=== PATIENT | female | born 1960 | race African-American/Black ===

== ENCOUNTER 2019-01-15 16:06 | Emergency (ER) | payer MEDICAID ==
[~2019-01-15] VITALS: Ht 160 cm; Wt 61.2 kg
--- NOTE | 2019-01-15 16:07 | NUR ---
PT [id number] FROM HOME, C/O LEFT LEG PAIN S/P FALL FROM THE STAIRS, -KO, POSSIBLE FRACTURE, PT IS AAOX4, NOT IN RESPIRATORY DISTRESS, HOOKED TO MONITOR, KEPT RESTED AND COMFORTABLE, WILL CONTINUE TO MONITOR.
[2019-01-15] MEDS ORDERED: KETOROLAC TROMETHAMINE INJ 30 MG/ML VIAL ONE (16:16)
--- NOTE | 2019-01-15 16:16 | NUR ---
SEEN AND EXAMINED BY .
--- NOTE | 2019-01-15 16:17 | NUR ---
IV LINE ESTABLISHED.
--- NOTE | 2019-01-15 16:20 | NUR ---
PROGRAM SUPPORT ASSISTANT AT BEDSIDE FOR XRAY.
[2019-01-15] MEDS ORDERED: KETOROLAC TROMETHAMINE INJ 30 MG/ML VIAL IV ONE (16:30)
[2019-01-15 17:37] VITALS: BP 144/91
--- NOTE | 2019-01-15 17:37 | NUR ---
IV removed. Catheter intact and site benign. Pressure and 4x4 applied to site. No bleeding noted. Patient discharged to home in stable condition. Written and verbal after care instructions given. Patient verbalizes understanding of instruction.
== END 2019-01-15 17:41 | disposition home or self-care (01) ==
LOC: ER 16:07
DX: S82.832A Other fracture of upper and lower end of left fibula, initial encounter for closed fracture (principal); S82.392A Other fracture of lower end of left tibia, initial encounter for closed fracture; I10 Essential (primary) hypertension; E78.5 Hyperlipidemia, unspecified; E11.9 Type 2 diabetes mellitus without complications; Z88.5 Allergy status to narcotic agent; Z60.2 Problems related to living alone; Z88.8 Allergy status to other drugs, medicaments and biological substances; W01.0XXA Fall on same level from slipping, tripping and stumbling without subsequent striking against object, initial encounter; Y93.89 Activity, other specified; Y92.89 Other specified places as the place of occurrence of the external cause; Y99.8 Other external cause status
CPT/HCPCS: 29515; 73590; 73610; 96374; 99283; J1885

== ENCOUNTER 2019-01-23 10:57 | Emergency (ER) | payer MEDICAID ==
[~2019-01-23] VITALS: Ht 160 cm; Wt 54.4 kg
[2019-01-23] MEDS ORDERED: KETOROLAC TROMETHAMINE INJ 60 MG/2 ML VIAL IM ONE ×2 (12:00→12:01)
[2019-01-23 12:54] VITALS: BP 141/88
--- NOTE | 2019-01-23 12:56 | NUR ---
Patient discharged to home in stable condition. Written and verbal after care instructions given. Patient verbalizes understanding of instruction. Prescription provided.
== END 2019-01-23 12:56 | disposition home or self-care (01) ==
LOC: ER 10:59
DX: S92.812A Other fracture of left foot, initial encounter for closed fracture (principal); I10 Essential (primary) hypertension; E78.5 Hyperlipidemia, unspecified; E11.9 Type 2 diabetes mellitus without complications; Z88.8 Allergy status to other drugs, medicaments and biological substances; Z88.5 Allergy status to narcotic agent; Z60.2 Problems related to living alone; X58.XXXA Exposure to other specified factors, initial encounter; Y93.89 Activity, other specified; Y92.89 Other specified places as the place of occurrence of the external cause; Y99.8 Other external cause status
CPT/HCPCS: 96372; 99283; J1885

== ENCOUNTER 2019-02-11 14:56 | Emergency (ER) | payer MEDICAID ==
[~2019-02-11] VITALS: Ht 162.6 cm; Wt 64.4 kg
--- NOTE | 2019-02-11 15:05 | NUR ---
"LLE PAIN AND SWELLING" pt aaox4, -sob, nad noted, vss ,pending md street
[2019-02-11] MEDS ORDERED: FLUCONAZOLE (100 MG) 100 MG TABLET ONE (15:57)
[2019-02-11] MEDS ORDERED: TRAMADOL HCL 50 MG TABLET ONE (15:57)
[2019-02-11] MEDS ORDERED: FLUCONAZOLE (100 MG) 100 MG TABLET PO ONE (16:00)
[2019-02-11] MEDS ORDERED: TRAMADOL HCL 50 MG TABLET PO ONE (16:00)
[2019-02-11] MEDS ORDERED: NYSTATIN (PYXIS) 500,000 UNIT/5 ML ORAL.SUSP PO SCH (16:00)
[2019-02-11] MEDS ORDERED: oxyCODONE/APAP (5/325 MG) 1 UDTAB TABLET ONE (18:20)
[2019-02-11] MEDS ORDERED: oxyCODONE/APAP (5/325 MG) 1 UDTAB TABLET PO ONE (18:30)
--- NOTE | 2019-02-11 18:44 | NUR ---
TRACE RAMON 1929 TRIP #[id number]
--- NOTE | 2019-02-11 18:44 | NUR ---
[facility] ETA 2030
--- NOTE | 2019-02-11 19:45 | NUR ---
[facility] ETA 2000
--- NOTE | 2019-02-11 20:23 | NUR ---
PT LEFT VIA [facility], PT LEFT IN STABLE CONDITION, VSS, NAD NOTED, -SOB, PT LEFT VIA [facility], REPORT GIVEN TO THE [facility] STAFF, PT SIGNED ALL PAPERWORK. D/C INSTRUCTIONS GIVEN
[2019-02-11 20:25] VITALS: BP 132/85
== END 2019-02-11 20:25 | disposition home or self-care (01) ==
LOC: ER 14:58
DX: M79.662 Pain in left lower leg (principal); B37.0 Candidal stomatitis; I10 Essential (primary) hypertension; E78.5 Hyperlipidemia, unspecified; E11.9 Type 2 diabetes mellitus without complications; Z98.890 Other specified postprocedural states; Z88.8 Allergy status to other drugs, medicaments and biological substances; Z88.6 Allergy status to analgesic agent; Z60.2 Problems related to living alone

== ENCOUNTER 2019-03-09 19:22 | Emergency (ER) | payer MEDICAID ==
[~2019-03-09] VITALS: Ht 160 cm; Wt 52.2 kg
[2019-03-09] MEDS ORDERED: ACETAMINOPHEN ES 500 MG TABLET ONE (20:21)
[2019-03-09] MEDS ORDERED: ACETAMINOPHEN ES 500 MG TABLET PO ONE (20:30)
--- NOTE | 2019-03-09 20:36 | NUR ---
BIBPA FROM HOME C/O L LOWER EXT PAIN AND SWELLING X3 DAYS.RECENT TIB FIB SX AT [facility] [id number] AGO. DENIES RECENT TRAUMA. LAST DOSE IBUPROFEN 1400. PT AAOX4, VSS. RR EVEN & UNLABORED. DENIES CP, SOB, DIZZINESS, N/V, WEAKNESS @ THIS TIME. SEEN & EVAL'D BY DR. LAKHANI. MEDICATED ORDERED. FAMILY @ BS & WILLL CONT TO MONITOR.
[2019-03-09 20:39] LABS: BASOPHILS # (AUTO) 0.1 /CMM (0.0-0.2); BASOPHILS % (AUTO) 0.7 % (0.0-2.0); EOSINOPHILS % (AUTO) 2.3 % (0.0-6.0); HEMATOCRIT 40 % (33-45); HEMOGLOBIN 13.5 g/dL (11.5-14.8); LYMPHOCYTES # (AUTO) 3.6 /CMM (0.8-4.8); LYMPHOCYTES % (AUTO) 44.3 % (20.0-44.0); MEAN CORPUSCULAR HGB CONC 34 g/dl (31.0-36.0); MEAN CORPUSCULAR VOLUME 89 fL (82-100); MONOCYTES # (AUTO) 0.5 /CMM (0.1-1.30); MONOCYTES % (AUTO) 6.6 % (2.0-12.0); NEUTROPHILS # (AUTO) 3.7 /CMM (1.8-8.9); NEUTROPHILS % (AUTO) 46.1 % (43.0-81.0); PLATELET COUNT (AUTO) 282 /CMM (150-450); RED BLOOD CELL COUNT(AUTO) 4.48 MIL/uL (4.0-5.2); WHITE BLOOD COUNT (AUTO) 8.1 K/uL (4.3-11.0)
[2019-03-09 20:51] LABS: CALCIUM, SERUM 10.3 mg/dL (8.5-10.1); CREATININE 0.7 mg/dL (0.6-1.3)
[2019-03-09] MEDS ORDERED: KETOROLAC TROMETHAMINE INJ 30 MG/ML VIAL ONE (21:50)
--- NOTE | 2019-03-09 21:58 | NUR ---
MEDICATED FOR PAIN PER ERMD ORDER, PT FLO WELL.
[2019-03-09] MEDS ORDERED: KETOROLAC TROMETHAMINE INJ 30 MG/ML VIAL IV ONE (22:00)
--- NOTE | 2019-03-09 22:03 | NUR ---
JUDI HUNTER ETA 2070 TRIP#[id number]
[2019-03-09 22:58] VITALS: BP 148/84
--- NOTE | 2019-03-09 22:58 | NUR ---
Patient discharged to home in stable condition. Written and verbal after care instructions given. Patient verbalizes understanding of instruction.IV removed. Catheter intact and site benign. Pressure and 4x4 applied to site. No bleeding noted.
== END 2019-03-09 22:59 | disposition home or self-care (01) ==
LOC: ER 19:24
DX: M25.572 Pain in left ankle and joints of left foot (principal); I10 Essential (primary) hypertension; E78.5 Hyperlipidemia, unspecified; E11.9 Type 2 diabetes mellitus without complications; Z98.890 Other specified postprocedural states; Z88.8 Allergy status to other drugs, medicaments and biological substances; Z88.6 Allergy status to analgesic agent; Z60.2 Problems related to living alone
CPT/HCPCS: 36415; 73610; 80048; 85025; 85652; 85730; 86850; 96374; 99284; J1885

== ENCOUNTER 2019-08-15 17:07 | Emergency (ER) | payer MEDICAID, OTHER ==
[~2019-08-15] VITALS: Ht 165.1 cm; Wt 60.8 kg
--- NOTE | 2019-08-15 17:10 | NUR ---
PT BIB RA WITH A C/O SI. PT APPEARS ALTERED AND IS CRYING. PT KEEPS STATING: "I WANT TO , CAN YOU HELP ME ?". PT'S AND SON ARE WITH THE PT. PT IS ON THE MONITOR AND CONITNUOUS PULSE OX. PT HAS A LLE BROKEN LEG THAT SHE GOES TO PT FOR. PT WEARS A CAM WALKER BOOT AND USES A WALKER TO AMBULATE.
--- NOTE | 2019-08-15 17:25 | NUR ---
IN AND OUT CATH DONE AT THE BEDSIDE. APPROX 400 ML YELLOW URINE OUTPUT NOTED. SAMPLE SENT TO LAB.
[2019-08-15 17:33] LABS: BASOPHILS # (AUTO) 0.1 /CMM (0.0-0.2); BASOPHILS % (AUTO) 0.8 % (0.0-2.0); EOSINOPHILS % (AUTO) 0.6 % (0.0-6.0); HEMATOCRIT 45 % (33-45); HEMOGLOBIN 15.1 g/dL (11.5-14.8); LYMPHOCYTES # (AUTO) 3.1 /CMM (0.8-4.8); LYMPHOCYTES % (AUTO) 44.2 % (20.0-44.0); MEAN CORPUSCULAR HGB CONC 34 g/dl (31.0-36.0); MEAN CORPUSCULAR VOLUME 86 fL (82-100); MONOCYTES # (AUTO) 0.2 /CMM (0.1-1.30); MONOCYTES % (AUTO) 2.4 % (2.0-12.0); NEUTROPHILS # (AUTO) 3.6 /CMM (1.8-8.9); PLATELET COUNT (AUTO) 294 /CMM (150-450); RED BLOOD CELL COUNT(AUTO) 5.21 MIL/uL (4.0-5.2); WHITE BLOOD COUNT (AUTO) 6.9 K/uL (4.3-11.0)
[2019-08-15 17:35] LABS: APPEARANCE,URINE Clear (CLEAR); BILIRUBIN,URINE Negative (NEGATIVE); BLOOD, URINE Trace-lysed Ery/uL (NEGATIVE); COLOR,URINE Yellow (YELLOW); KETONES,URINE Negative (NEGATIVE); LEUKOCYTE ESTERASE ,URINE Negative (NEGATIVE); NITRITE, URINE Negative (NEGATIVE); PH,URINE 5.5 (5.0-8.0); PROTEIN,URINE Negative (NEGATIVE); UGLUCOSE >=1000 mg/dL (NEGATIVE); UROBILINOGEN,URINE 0.2 EU/dL (0.2)
[2019-08-15 17:53] LABS: ALANINE AMINOTRANSFERASE 24 U/L (12-78); ALBUMIN 4.2 g/dL (3.4-5.0); ALCOHOL, BLOOD 256 mg/dL (0-0); ALKALINE PHOSPHATASE 143 U/L (46-116); ASPARTATE AMINOTRANSFERASE 11 U/L (15-37); BILIRUBIN,TOTAL 0.2 mg/dL (0.2-1.0); CALCIUM, SERUM 9.5 mg/dL (8.5-10.1); CARBON DIOXIDE 24 mmol/L (21-32); CHLORIDE 102 mmol/L (98-107); CREATININE 0.6 mg/dL (0.6-1.3); POTASSIUM 3.7 mmol/L (3.5-5.1); SALICYLATE 1.5 mg/dL (2.8-20.0); SODIUM SERUM 141 mmol/L (136-145); UREA NITROGEN, BLOOD 9 mg/dL (7-18)
[2019-08-15 17:54] LABS: ACETAMINOPHEN < 2 ug/ml (10-30); GLUCOSE 361 mg/dL (74-106)
[2019-08-15 17:55] LABS: BACTERIA,URINE Few /HPF (None Seen); SQUAMOUS EPITHELIAL CELL,UR Few /HPF (None Seen); WBC,URINE 0-2 /HPF (0-3)
[2019-08-15] MEDS ORDERED: IV NS 0.9% 1,000 ML BAG IV ONE (18:00)
--- NOTE | 2019-08-15 18:00 | NUR ---
PT USED THE BEDPAN. APPROX 250 ML YELLOW URINE OUTPUT NOTED.
[2019-08-15] MEDS ORDERED: ALOG25TA2 PO (18:26)
[2019-08-15] MEDS ORDERED: AMLO5TAB9 PO (18:26)
[2019-08-15] MEDS ORDERED: SIMV-46 PO (18:26)
[2019-08-15] MEDS ORDERED: GABA-532 PO (18:26)
[2019-08-15] MEDS ORDERED: NAPR-1192 PO (18:26)
--- NOTE | 2019-08-15 19:15 | NUR ---
PT APPEARS TO BE RESTING COMFORTABLY WITH FAMILY AT THE BEDSIDE.
--- NOTE | 2019-08-15 20:15 | NUR ---
PT STATED THAT SHE FELT A LITTLE BETTER.
--- NOTE | 2019-08-15 20:16 | NUR ---
PT APPEARS TO BE RESTING COMFORTABLY WITH NO S/S OF PAIN OR DISTRESS.
--- NOTE | 2019-08-15 20:44 | NUR ---
PT'S IS GOING TO [facility] TO GET THE PT A BURRITO. PT'S SON IS AT THE BEDSIDE.
[2019-08-15] MEDS ORDERED: GABAPENTIN 100 MG CAPSULE ONE (21:22)
--- NOTE | 2019-08-15 21:23 | NUR ---
PT IS C/O LLE PAIN. PT USUALLY TAKES GABAPENTIN 100MG PO. [place] ALEJANDRO PAC NOTIFIED. NEW ORDERS GIVEN AND CARRIED OUT.
--- NOTE | 2019-08-15 21:40 | NUR ---
PT'S RETURNED WITH FOOD. PT TOLERATED PO WELL.
[2019-08-15] MEDS ORDERED: GABAPENTIN 100 MG CAPSULE PO ONE (22:00)
--- NOTE | 2019-08-15 22:17 | NUR ---
CALLED [employer]AM[employer] FLOOR SUPERVISOR SQUAD SERGEANT. ETA 60 MIN
[2019-08-15] MEDS ORDERED: ONDANSETRON HCL/PF 4 MG/2 ML VIAL ONE (23:32)
[2019-08-16] MEDS ORDERED: ONDANSETRON HCL/PF 4 MG/2 ML VIAL IV ONE
--- NOTE | 2019-08-16 01:05 | NUR ---
DIANN TOLLIVERW AT BEDSIDE TO KAILEY WILKINS.
--- NOTE | 2019-08-16 01:39 | NUR ---
CALLING [facility] FOR TRANSPORT TO HOME. [facility] DOES NOT HAVE TRANSPORT AVAILABLE.
--- NOTE | 2019-08-16 01:49 | NUR ---
CALLING CALL THE CAR RE TRANSPORT HOME. THEY ARE CHECKING WITH THE WHEELCHAIR SERVICE TO SEE IF THEY HAVE SPARE WC TO TRANSPORT WITH.
--- NOTE | 2019-08-16 01:56 | NUR ---
CALL THE CAR CTC #: [phone]. ZACHARY WILL BACK.
--- NOTE | 2019-08-16 02:46 | NUR ---
SPOKE TO [facility] ([facility]) ETA [phone].
--- NOTE | 2019-08-16 02:53 | NUR ---
ETA FOR P/U IS 0330 OR 2150
[2019-08-16] MEDS ORDERED: ACETAMINOPHEN 325 MG TABLET PO ONE (03:30)
[2019-08-16] MEDS ORDERED: ALPRAZOLAM 0.5 MG TABLET PO ONE (03:30)
[2019-08-16] MEDS ORDERED: IBUPROFEN 400 MG TABLET PO ONE (03:30)
[2019-08-16] MEDS ORDERED: ALPRAZOLAM 0.5 MG TABLET ONE ×2 (03:32→03:38)
[2019-08-16] MEDS ORDERED: IBUPROFEN 400 MG TABLET ONE (03:32)
[2019-08-16] MEDS ORDERED: ACETAMINOPHEN ES 500 MG TABLET ONE (03:32)
--- NOTE | 2019-08-16 03:53 | NUR ---
IV removed. Catheter intact and site benign. Pressure and 4x4 applied to site. No bleeding noted. Patient discharged to home in stable condition. Written and verbal after care instructions given. Patient verbalizes understanding of instruction. PT'S VSS. PT IS WAITING FOR TRANSPORT TO HOME VIA CALL THE CAR.
[2019-08-16 03:54] VITALS: BP 152/92
== END 2019-08-16 03:55 | disposition home or self-care (01) ==
LOC: ER 17:08
DX: R45.851 Suicidal ideations (principal); F32.9 Major depressive disorder, single episode, unspecified; E10.9 Type 1 diabetes mellitus without complications; F10.129 Alcohol abuse with intoxication, unspecified; I10 Essential (primary) hypertension; E78.5 Hyperlipidemia, unspecified; Z98.890 Other specified postprocedural states; Z88.8 Allergy status to other drugs, medicaments and biological substances; Z88.6 Allergy status to analgesic agent; Z60.2 Problems related to living alone; Z79.899 Other long term (current) drug therapy; Y90.8 Blood alcohol level of 240 mg/100 ml or more
CPT/HCPCS: 36415 ×2; 80048; 80076; 80305; 80307 ×3; 80329; 81001; 82962; 85025; 96374; 99284; G0480; J2405; 81000-TC

== ENCOUNTER 2019-08-19 13:48 | Emergency (ER) | payer OTHER ==
[~2019-08-19] VITALS: Ht 160 cm; Wt 55.3 kg
[2019-08-19 13:48] VITALS: BP 129/83
[~2019-08-19 13:48] MED LIST: ALOG25TA2 PO; AMLO5TAB9 PO; GABA-532 PO; NAPR-1192 PO; SIMV-46 PO
[2019-08-19] MEDS ORDERED: IBUPROFEN 600 MG TABLET PO ONE ×2 (14:30→14:35)
[2019-08-19] MEDS ORDERED: ACETAMINOPHEN ES 500 MG TABLET PO ONE (14:30)
[2019-08-19] MEDS ORDERED: ACETAMINOPHEN ES 500 MG TABLET ONE (14:35)
== END 2019-08-19 16:17 | disposition home or self-care (01) ==
LOC: ER 13:55
DX: J20.9 Acute bronchitis, unspecified (principal); I10 Essential (primary) hypertension; E11.9 Type 2 diabetes mellitus without complications; E78.5 Hyperlipidemia, unspecified; Z98.890 Other specified postprocedural states; Z79.899 Other long term (current) drug therapy; Z88.5 Allergy status to narcotic agent; Z88.8 Allergy status to other drugs, medicaments and biological substances

== ENCOUNTER 2019-08-22 11:17 | Inpatient (IN) | payer OTHER ==
[~2019-08-22] VITALS: Ht 160 cm; Wt 55.3 kg
--- NOTE | 2019-08-22 11:34 | NUR ---
DX 4 DAYS AGO FOR BRONCHITIS,C/O BODY ACHE AND FEVER. TEMP OF 99.4 ON ARRIVAL. HAVING SOME CHILLS WELL, "ALWAYS SHAKING". DENIES PAIN, SOB, WEAKNESS. NO ACUTE DISTRESS NOTED. ON MONITOR AND READY FOR EVAL.
[2019-08-22] MEDS ORDERED: ACETAMINOPHEN ES 500 MG TABLET ONE (11:43)
[2019-08-22 11:55] LABS: APPEARANCE,URINE Cloudy (CLEAR); BILIRUBIN,URINE Negative (NEGATIVE); BLOOD, URINE Moderate Ery/uL (NEGATIVE); COLOR,URINE Yellow (YELLOW); KETONES,URINE >=160 (NEGATIVE); LEUKOCYTE ESTERASE ,URINE Small (NEGATIVE); NITRITE, URINE Positive (NEGATIVE); PH,URINE 5.5 (5.0-8.0); PROTEIN,URINE 30 mg/dl (NEGATIVE); UGLUCOSE 500 MG/DL mg/dL (NEGATIVE); UROBILINOGEN,URINE 0.2 EU/dL (0.2)
[2019-08-22] MEDS ORDERED: IV NS 0.9% 1,000 ML BAG IV ONE (12:00)
[2019-08-22] MEDS ORDERED: ACETAMINOPHEN ES 500 MG TABLET PO ONE (12:00)
--- NOTE | 2019-08-22 12:00 | NUR ---
IV ACCESS OBTAINED. IVF INFUSING. PT FLO WELL.
[2019-08-22 12:02] LABS: BASOPHILS % (AUTO) 0.3 % (0.0-2.0); HEMATOCRIT 40 % (33-45); HEMOGLOBIN 13.4 g/dL (11.5-14.8); LYMPHOCYTES # (AUTO) 0.6 /CMM (0.8-4.8); LYMPHOCYTES % (AUTO) 5.2 % (20.0-44.0); MEAN CORPUSCULAR HGB CONC 33 g/dl (31.0-36.0); MEAN CORPUSCULAR VOLUME 86 fL (82-100); MONOCYTES # (AUTO) 0.7 /CMM (0.1-1.30); MONOCYTES % (AUTO) 6.4 % (2.0-12.0); NEUTROPHILS # (AUTO) 9.9 /CMM (1.8-8.9); NEUTROPHILS % (AUTO) 88.1 % (43.0-81.0); PLATELET COUNT (AUTO) 213 /CMM (150-450); RED BLOOD CELL COUNT(AUTO) 4.68 MIL/uL (4.0-5.2); WHITE BLOOD COUNT (AUTO) 11.2 K/uL (4.3-11.0)
[2019-08-22] MEDS ORDERED: CEFTRIAXONE 1GM BAG (ER ONLY) 50 ML IV ONE (12:09)
[2019-08-22 12:15] LABS: ALBUMIN 3.3 g/dL (3.4-5.0); BILIRUBIN,DIRECT 0.2 mg/dL (0.0-0.2); BILIRUBIN,TOTAL 0.5 mg/dL (0.2-1.0); CREATININE 0.8 mg/dL (0.6-1.3); POTASSIUM 3.9 mmol/L (3.5-5.1)
[2019-08-22] MEDS ORDERED: CEFTRIAXONE 1GM BAG (ER ONLY) 1 GM/50 ML PIGGYBACK IV ONE (12:30)
[2019-08-22] MEDS ORDERED: SIMV10TA98 PO (12:37)
[2019-08-22] MEDS ORDERED: AZIT250T13 PO (12:41)
[2019-08-22 12:42] LABS: WBC,URINE TOO NUMEROUS TO COUN /HPF (0-3)
[2019-08-22 12:43] LABS: BACTERIA,URINE 4+ /HPF (None Seen); SQUAMOUS EPITHELIAL CELL,UR Many /HPF (None Seen); URINE AMORPHOUS URATE Moderate /HPF (None Seen)
--- NOTE | 2019-08-22 12:51 | NUR ---
PAGED [facility].
--- NOTE | 2019-08-22 12:52 | NUR ---
CALLED NURSING SUP FOR TELE BED.
--- NOTE | 2019-08-22 13:20 | NUR ---
NURSING SUP CALLED AND GAVE TELE BED [phone].
[2019-08-22] MEDS ORDERED: IV NS 0.9% 1,000 ML IV PRN (13:45)
--- NOTE | 2019-08-22 13:53 | NUR ---
REPORT GIVEN TO ARGELIA BENITEZ FOR [phone] MS
[2019-08-22] MEDS ORDERED: DEXTROSE 50%-WATER 50 ML DISP.SYRIN IV PRN (14:00)
[2019-08-22] MEDS ORDERED: HYDROCODONE/APAP 5/325MG 1 EACH TABLET PO PRN (14:00)
[2019-08-22] MEDS ORDERED: Z GUARD REMEDY 2 OZ OINT TP PRN (14:00)
[2019-08-22] MEDS ORDERED: MAG HYDROX/AL HYDROX/SIMETH 30 ML UDC PO PRN (14:00)
[2019-08-22] MEDS ORDERED: NAPROXEN 375 MG TABLET PO PRN (14:00)
[2019-08-22] MEDS ORDERED: HYDROCODONE/APAP 10/325MG 1 EA TABLET PO PRN (14:00)
[2019-08-22] MEDS ORDERED: MAGNESIUM HYDROXIDE 30 ML UDC PO PRN (14:00)
[2019-08-22] MEDS ORDERED: ONDANSETRON HCL/PF 4 MG/2 ML VIAL IVP PRN (14:00)
--- NOTE | 2019-08-22 14:21 | NUR ---
[facility]
[2019-08-22 14:25] VITALS: BP 113/78
[2019-08-22] MEDS: ACETAMINOPHEN 325 MG TABLET PO PRN ×2 (15:37→23:47)
--- NOTE | 2019-08-22 15:46 | NUR ---
MS RN ADMITTING NOTES ADMITTED A 59 Y/O FEMALE VIA GURNEY TO UNIT FROM E.R AT 1415. PT IS A/O X4. ABLE TO MAKE NEEDS KNOWN, NO C/O PAIN OR DISCOMFORTS AT THIS TIME VOICED. PT ORIENTED TO ROOM AND STAFF. V/S TAKEN AND RECORDED. ON ROOM AIR, TOLERATING WELL WITH NO SOB NOTED. SKIN IS INTACT. LUNGS CLEAR ON AUSCULTATION BILATERALLY. ABDOMEN SOFT, NON-TENDER, NON DISTENDED WITH + BOWEL SOUNDS ON FOUR QUADRANTS. IV ACCESS NOTED ON LAC G#20 INTACT AND PATENT, IVF OF NS AT 75ML/HR TO BE STARTED. SAFETY MEASURES INITIATED: BED PLACED ON LOWEST LOCKED POSITION WITH SR UP X2. CALL LIGHT WITHIN REACH. WILL CONTINUE TO MONITOR PT ACCORDINGLY.
--- NOTE | 2019-08-22 15:51 | NUR ---
RN NOTES PT C/O OF MILD HEADACHE AND LEFT FLANK PAIN, TYLENOL 650MG PO GIVEN AT 1537. WILL CONTINUE TO MONITOR
[2019-08-22 16:00] VITALS: BP 124/78
[2019-08-22] MEDS: BLOOD SUGAR DIAGNOSTIC 1 EACH STRIP IN SCH ×2 (17:37→22:31)
[2019-08-22] MEDS: INSULIN REGULAR, HUMAN 100 UNIT/ML 3 ML VIAL SQ PRN ×2 (17:37→22:27)
[2019-08-22] MEDS ORDERED: KETOROLAC TROMETHAMINE INJ 30 MG/ML VIAL IM ONE (18:30)
[2019-08-22] MEDS: IV NS 0.9% 1,000 ML IV PRN (18:33)
--- NOTE | 2019-08-22 18:55 | NUR ---
RN NOTES PT SEEN AND EVALUATED BY DR MOISE. PT C/O LEFT FLANK, LOWER AND UPPER BACK PAIN WITH SCALE OF 10/10. TORADOL 30MG IM X1 DOSE GIVEN ORDERED. WILL CONTINUE TO MONITOR AND REASSESS PT.
--- NOTE | 2019-08-22 19:08 | NUR ---
MS RN CLOSING NOTES PATIENT AWAKE AND RESTING IN BED AT THIS TIME WITH FAMILY AT BEDSIDE. A/O X4. VERBALLY RESPONSIVE. ON ROOM AIR, RESPIRATIONS EVEN AND UNLABORED. IV ACCESS ON RAC G#20 INTACT AND PATENT, IVF OF NS @ 125ML/HR INFUSING WELL, NO S/S OF INFILTRATIONS NOTED AT SITE. BED LOCKED AND IN LOWEST POSITION. CALL LIGHTS WITHIN REACH. ALL NEEDS AND CARE ATTENDED WELL. WILL CONTINUE TO MONITOR
[2019-08-22 20:00] VITALS: BP 112/72
[2019-08-22 20:40] LABS: URINE SODIUM, RANDOM 17 mmol/l (40-220)
[2019-08-22 20:58] LABS: OSMOLALITY,URINE 442 mOS/kg (340-1090)
[2019-08-22] MEDS: SIMVASTATIN 10 MG TABLET PO SCH (22:24)
--- NOTE | 2019-08-22 23:02 | NUR ---
RUDDY/RN AT 1930, RECEIVED PATIENT IN BED AWAKE, ALERT, ORIENTED, COMFORTABLE, NO C/O PAIN, NO DISTRESS NOTED, CALL LIGHT IN REACH. WILL MONITOR.
--- NOTE | 2019-08-23 00:32 | NUR ---
MS/RN PATIENT APPEAR SLEEPING AT THIS TIME, APPEAR COMFORTABLE, NO SIGNS OF DISTRESS NOTED, CALL LIGHT IN REACH. WILL CONTINUE TO MONITOR.
[2019-08-23] MEDS: IV NS 0.9% 1,000 ML IV PRN ×3 (01:40→18:38)
[2019-08-23] MEDS: ACETAMINOPHEN 325 MG TABLET PO PRN ×2 (06:14→19:41)
--- NOTE | 2019-08-23 06:30 | NUR ---
MS/RN PATIENT IS AWAKE, ALERT, C/O LEFT FLANK PAIN, REFUSED NORCO, REQUESTED FOR TYLENOL, TYLENOL 850 MG PO WAS GIVEN ORDERED. ALL NEEDS ATTENDED AT THIS TIME, WILL CONTINUE TO MONITOR.
[2019-08-23] MEDS: INSULIN REGULAR, HUMAN 100 UNIT/ML 3 ML VIAL SQ PRN ×4 (06:34→21:23)
[2019-08-23 06:35] LABS: BASOPHILS % (AUTO) 0.2 % (0.0-2.0); EOSINOPHILS % (AUTO) 0.2 % (0.0-6.0); HEMATOCRIT 36 % (33-45); HEMOGLOBIN 11.9 g/dL (11.5-14.8); LYMPHOCYTES # (AUTO) 1.3 /CMM (0.8-4.8); MEAN CORPUSCULAR HGB CONC 33 g/dl (31.0-36.0); MEAN CORPUSCULAR VOLUME 86 fL (82-100); MONOCYTES # (AUTO) 1.3 /CMM (0.1-1.30); MONOCYTES % (AUTO) 11.1 % (2.0-12.0); NEUTROPHILS # (AUTO) 8.9 /CMM (1.8-8.9); NEUTROPHILS % (AUTO) 77.5 % (43.0-81.0); PLATELET COUNT (AUTO) 211 /CMM (150-450); RED BLOOD CELL COUNT(AUTO) 4.23 MIL/uL (4.0-5.2); WHITE BLOOD COUNT (AUTO) 11.5 K/uL (4.3-11.0)
[2019-08-23] MEDS: BLOOD SUGAR DIAGNOSTIC 1 EACH STRIP IN SCH ×4 (06:43→22:00)
[2019-08-23 06:45] LABS: CALCIUM, SERUM 8.9 mg/dL (8.5-10.1); CREATININE 0.7 mg/dL (0.6-1.3); MAGNESIUM 1.9 mg/dL (1.8-2.4); PHOSPHORUS 2.4 mg/dL (2.5-4.9); POTASSIUM 3.8 mmol/L (3.5-5.1)
[2019-08-23 06:59] LABS: THYROID STIMULATING HORMONE 0.597 uIU/mL (0.358-3.74)
--- NOTE | 2019-08-23 07:24 | NUR ---
MS RN OPENING NOTES RECEIVED PATIENT AWAKE IN BED IN NO ACUTE SIGNS OF DISTRESS. A/O X4. ABLE TO MAKE NEEDS KNOWN, DENIES PAIN OR ANY DISCOMFORTS AT THIS TIME. ON ROOM AIR, BREATHING EVEN AND UNLABORED. IV ACCESS ON LAC G#20 INTACT AND PATEN, IVF OF NS @125 ML/HR INFUSING WELL, NO S/S OF INFILTRATIONS NOTED AT T SITE. BED IN LOW LOCKED POSITION WITH SR UP X2. CALL LIGHT WITHIN REACH. WILL CONTINUE TO MONITOR.
--- NOTE | 2019-08-23 07:55 | NUR ---
RN NOTERS PT C/O NAUSEA, PRN ZOFRAN 4MG/2ML IVP ADMINISTERED AT 0747. WILL CONTINUE TO MONITOR AND REASSESS.
[2019-08-23 08:00] VITALS: BP 118/79
[2019-08-23] MEDS: AMLODIPINE BESYLATE 5 MG TABLET PO SCH (09:08)
[2019-08-23] MEDS: GABAPENTIN 100 MG CAPSULE PO SCH (09:08)
[2019-08-23] MEDS: LINAGLIPTIN 5 MG TABLET PO SCH (09:09)
--- NOTE | 2019-08-23 10:28 | NUR ---
RN NOTES PT C/O LEFT FLANK PAIN AND SHAKING, PRN NAPROXEN 375MG PO GIVEN AT 1027. WILL CONTINUE TO MONITOR
[2019-08-23] MEDS ORDERED: KETOROLAC TROMETHAMINE INJ 30 MG/ML VIAL IV ONE (11:00)
--- NOTE | 2019-08-23 11:36 | NUR ---
RN NOTES PT SEEN BY DR MOISE AND PT C/O LEFT FLANK AND LOWER BACK PAIN WITH SCALE OF 7/10. TORADOL 30MG IVP X1 DOSE GIVEN @ 1132. WILL CONTINUE TO MONITOR AND REASSESS PT.
[2019-08-23] MEDS ORDERED: CEFTRIAXONE 1 G in IV D5W 50 ML IV SCH (12:00)
[2019-08-23 16:00] VITALS: BP 110/79
[2019-08-23] MEDS ORDERED: K PHOS NEUTRAL 250 MG TABLET PO ONE (16:00)
[2019-08-23] MEDS: TRAMADOL HCL 50 MG TABLET PO PRN ×2 (16:15→22:00)
--- NOTE | 2019-08-23 16:19 | NUR ---
RN NOTES PT GRIMACING AND MOANING WITH C/O LEFT FLANK PAIN AND LOWER BACK PAIN WITH SCALE OF 10/10, PRN TRAMADOL 50 MG PO GIVEN AT 1615. WILL CONTINUE TO MONITOR AND REASSESS PT.
--- NOTE | 2019-08-23 17:35 | NUR ---
RN NOTES PT REQUESTED IF MOTRIN COULD BE ADDED TO HER PAIN MEDICATIONS. MAGGIE MEHTA SAID YES AND ORDERED MOTRIN 400MG PO Q6H PRN.
--- NOTE | 2019-08-23 18:36 | NUR ---
MS RN CLOSING NOTES PATIENT IN BED AWAKE AND RESTING AT SEMI-TAMEZ'S POSITION. A/O X4. ABLE TO MAKE NEEDS AND CONCERNS KNOWN. ON ROOM AIR, RESPIRATIONS EVEN AND UNLABORED, NO SOB NOTED DURING THE DAY. IV ACCESS ON RAC G#20 INTACT AND PATENT, IVF OF NS @ 125ML/HR INFUSING WELL, NO S/S OF INFILTRATIONS NOTED AT SITE. BED LOCKED AND IN LOWEST POSITION. CALL LIGHTS WITHIN REACH. ALL NEEDS AND CARE ATTENDED WELL. WILL CONTINUE TO MONITOR
--- NOTE | 2019-08-23 19:26 | NUR ---
MS RN OPENING NOTES PATIENT RESTING IN BED COMFORTABLY; A/O X4; BREATHING EVEN AND UNLABORED; NO SOB NOTED; NO S/S OF ACUTE RESPIRATORY DISTRESS NOTED; L AC # 20 INTACT AND PATENT; FLUSHING WELL, NO S/S OF REDNESS OR INFILTRATION; NS @ 125ML/HR RUNNING, PATIENT TOLERATING IVF WELL; SAFETY PRECAUTIONS IMPLEMENTED; BED LOCKED IN LOW POSITION; BILATERAL SIDE RAILS X2; CALL LIGHT WITHIN REACH; WILL CONTINUE TO MONITOR
--- NOTE | 2019-08-23 19:44 | NUR ---
MS RN NOTES PATIENT TEMP 100.4F; TYLENOL ADMINISTERED ORDERED; PATIENT ALSO REQUESTED ICE PACK; WILL CONTINUE TO MONITOR
[2019-08-23 19:59] VITALS: BP 109/77
[2019-08-23 20:00] VITALS: BP 109/77
[2019-08-23] MEDS: SIMVASTATIN 10 MG TABLET PO SCH (21:19)
[2019-08-23] MEDS: INSULIN GLARGINE, 100 UNIT/ML CARTRIDGE SQ SCH (21:22)
--- NOTE | 2019-08-23 22:04 | NUR ---
MS RN NOTES PATIENT COMPLAINT OF SOB; 2L NC APPLIED; PATIENT TOLERATING WELL; PATIENT INSTRUCTED TO DEEP BREATHE AND TRY TO RELAX; PATIENT VERBALIZED 2L NC HELPING AND FEELS BETTER; PATIENT REQUESTED TORADOL FOR PAIN AND MAGNETOMETER OPERATOR ORDERED; VITALS WNL; WILL CONTINUE TO MONITOR
[2019-08-24] MEDS: IBUPROFEN 400 MG TABLET PO PRN ×3 (01:18→20:39)
--- NOTE | 2019-08-24 01:19 | NUR ---
administered ibuprofen 400 mg as ordered per patient request for left sided back pain that radiates to sides rated 3/10.
--- NOTE | 2019-08-24 02:00 | NUR ---
MS RN NOTES PATIENT RESTING IN BED COMFORTABLY; TEMPERATURE TAKEN 98.4F; PATIENT REPORTS TO BE BREATHING BETTER WITH 2L NC; PATIENT REQUESTED TO HAVE NC WHILE SHE SLEEPS; PATIENT TOLERATING 2L NC WELL; BREATHING EVEN AND UNLABORED; NO SOB NOTED; NO S/S OF ACUTE RESPIRATORY DISTRESS NOTED; WILL CONTINUE TO MONITOR
[2019-08-24] MEDS: IV NS 0.9% 1,000 ML IV PRN ×2 (05:00→22:43)
[2019-08-24] MEDS: TRAMADOL HCL 50 MG TABLET PO PRN ×2 (05:12→11:20)
[2019-08-24] MEDS: INSULIN REGULAR, HUMAN 100 UNIT/ML 3 ML VIAL SQ PRN ×4 (06:29→22:07)
--- NOTE | 2019-08-24 06:43 | NUR ---
MS RN CLOSING NOTES PATIENT AWAKE, A/OX4; PATIENT STILL REQUESTS TO BE ON NC; PATIENT VERBALIZED SHE FEELS MORE COMFORTABLE WITH IT ON; BREATHING EVEN AND UNLABORED; NO SOB OR DISTRESS NOTED; L AC #20 INTACT AND PATENT; RUNNING NS @ 125ML/HR; PATIENT TOLERATING IVF WELL; PATIENT VERBALIZED LEFT SIDE PAIN AND MOTRIN GIVEN ORDERED; PATIENT ALSO REQUESTED HOT PACK; WILL INFORM ONCOMING NURSE; ALL NEEDS RENDERED; SAFETY PRECAUTIONS IN PLACE; BED LOCKED IN LOW POSITION; SIDE RAILS X2; CALL LIGHT WITHIN REACH; WILL ENDORSE MARTA TO ONCOMING SHIFT
[2019-08-24 06:48] LABS: BASOPHILS % (AUTO) 0.3 % (0.0-2.0); EOSINOPHILS % (AUTO) 0.7 % (0.0-6.0); HEMATOCRIT 34 % (33-45); HEMOGLOBIN 11.1 g/dL (11.5-14.8); LYMPHOCYTES # (AUTO) 1.4 /CMM (0.8-4.8); MEAN CORPUSCULAR HGB CONC 32 g/dl (31.0-36.0); MEAN CORPUSCULAR VOLUME 86 fL (82-100); MONOCYTES % (AUTO) 8.9 % (2.0-12.0); NEUTROPHILS # (AUTO) 8.8 /CMM (1.8-8.9); NEUTROPHILS % (AUTO) 78.1 % (43.0-81.0); PLATELET COUNT (AUTO) 223 /CMM (150-450); RED BLOOD CELL COUNT(AUTO) 3.96 MIL/uL (4.0-5.2); WHITE BLOOD COUNT (AUTO) 11.3 K/uL (4.3-11.0)
[2019-08-24] MEDS: BLOOD SUGAR DIAGNOSTIC 1 EACH STRIP IN SCH ×4 (07:03→22:05)
[2019-08-24 07:11] LABS: CALCIUM, SERUM 8.7 mg/dL (8.5-10.1); CREATININE 0.7 mg/dL (0.6-1.3); PHOSPHORUS 2.8 mg/dL (2.5-4.9); POTASSIUM 3.7 mmol/L (3.5-5.1)
--- NOTE | 2019-08-24 07:34 | NUR ---
MS RN NOTES RECEIVED PATIENT IN BED RESTING COMFORTABLY IN MODERATE HIGH BACK REST. AWAKE, A/OX4; ON OXYGEN 2LPM/NC; NO SIGNS OF DISTRESS NOTED AT THIS TIME; IV FLUIDS ON LAC #20 RUNNING NS @ 125ML/HR; PATIENT TOLERATING IVF WELL; SAFETY PRECAUTIONS IN PLACE; BED LOCKED IN LOW POSITION; SIDE RAILS X2; CALL LIGHT WITHIN REACH; WILL CONTINUE TO MONITOR.
[2019-08-24 08:00] VITALS: BP 112/73
[2019-08-24] MEDS: GABAPENTIN 100 MG CAPSULE PO SCH (08:14)
[2019-08-24] MEDS: AMLODIPINE BESYLATE 5 MG TABLET PO SCH (08:14)
[2019-08-24] MEDS: LINAGLIPTIN 5 MG TABLET PO SCH (08:14)
[2019-08-24] MEDS ORDERED: MEROPENEM 500 MG in IV NS 0.9% 50 ML IV ONE (11:00)
[2019-08-24] MEDS ORDERED: KETOROLAC TROMETHAMINE INJ 30 MG/ML VIAL IV ONE (15:00)
[2019-08-24] MEDS: ACETAMINOPHEN 325 MG TABLET PO PRN (15:03)
[2019-08-24 16:00] VITALS: BP 116/84
[2019-08-24] MEDS: MEROPENEM 500 MG in IV NS 0.9% 100 ML IV SCH (16:01)
[2019-08-24] MEDS: INSULIN ASPART/LISPRO 100 UNIT/ML CARTRIDGE SQ SCH (18:33)
--- NOTE | 2019-08-24 18:48 | NUR ---
MS RN NOTES PATIENT IN BED RESTING COMFORTABLY IN MODERATE HIGH BACK REST. AWAKE, A/OX4; ON OXYGEN 2LPM/NC; NO SIGNS OF DISTRESS NOTED THROUGHOUT THE SHIFT; IV FLUIDS ON LAC #20 RUNNING NS @ 75ML/HR; PATENT AND INTACT; ISOLATION PRECAUTION MAINTAINED. SAFETY PRECAUTIONS IN PLACE; BED LOCKED IN LOW POSITION; SIDE RAILS X2; CALL LIGHT WITHIN REACH; WILL ENDORSE TO CLEARANCE CENTER MANAGER NURSE FOR MARTA.
--- NOTE | 2019-08-24 19:44 | NUR ---
MS RN NOTES PATIENT RECEIVED IN BED LAYING COMFORTABLY, ALERT AND ORIENTED X 4, ACCOMPANIED BY FAMILY AT BEDSIDE. PATIENT ON CONTACT PRECAUTION. PATIENT ON NASAL CANNULA 2 LITERS WITH EVEN NON-LABORED BREATHING AND NO SIGNS OF RESPIRATORY DISTRESS. IV ACCESS INTACT AND IN PLACE ON LAC. PROVIDED COMFORT MEASURES TO PATIENT. SAFETY PRECAUTIONS IN PLACE WITH BED IN THE LOWEST POSITION, BILATERAL SIDE RAILS UP, BED LOCKED, BED ALARM ON, AND CALL LIGHT WITHIN EASY REACH. WILL CONTINUE TO MONITOR PATIENT.
[2019-08-24 20:00] VITALS: BP 108/72
--- NOTE | 2019-08-24 20:42 | NUR ---
MS RN NOTES PATIENT STATES HER PAIN LEVEL IS 8/10 LOCATED ON THE LEFT SIDE OF ABDOMEN, AND LOWER BACK. PATIENT INSISTED ON TAKING IBUPROFEN 400m PO, ADMINISTER IBUPROFEN PO. VITAL SIGNS, BP: 108/72 PULSE: 92 RESPIRATORY RATE 18, TEMPERATURE 97.9 O2 SATURATION 98%. WILL CONTINUE TO MONITOR PATIENT.
[2019-08-24] MEDS: SIMVASTATIN 10 MG TABLET PO SCH (21:54)
[2019-08-24] MEDS: INSULIN GLARGINE, 100 UNIT/ML CARTRIDGE SQ SCH (22:06)
--- NOTE | 2019-08-24 22:18 | NUR ---
MS RN NOTES PATIENT'S BLOOD SUGAR 178, SCHEDULE LANTUS GIVEN, 12 UNITS, AND PER SLIDING SCALE PROTOCOL 3 UNITS OF REGULAR INSULIN. PROVIDED SNACK AND JUICE TO PATIENT. WILL CONTINUE TO MONITOR PATIENT.
[2019-08-25] MEDS: MEROPENEM 500 MG in IV NS 0.9% 100 ML IV SCH ×3 (00:14→17:04)
[2019-08-25] MEDS: ACETAMINOPHEN 325 MG TABLET PO PRN ×2 (02:30→15:43)
[2019-08-25] MEDS: IBUPROFEN 400 MG TABLET PO PRN ×4 (06:01→18:17)
[2019-08-25] MEDS: BLOOD SUGAR DIAGNOSTIC 1 EACH STRIP IN SCH ×4 (06:36→21:59)
[2019-08-25] MEDS: INSULIN REGULAR, HUMAN 100 UNIT/ML 3 ML VIAL SQ PRN ×3 (07:00→18:10)
--- NOTE | 2019-08-25 07:00 | NUR ---
MS RN NOTES PATIENT'S BLOOD SUGAR 186, PER SLIDING SCALE PROTOCOL, 3 UNITS OF REGULAR INSULIN ADMINISTERED. PROVIDED SNACK AND JUICE TO PATIENT. WILL CONTINUE TO MONITOR PATIENT.
[2019-08-25 07:12] LABS: BASOPHILS % (AUTO) 0.2 % (0.0-2.0); EOSINOPHILS % (AUTO) 0.4 % (0.0-6.0); HEMATOCRIT 35 % (33-45); HEMOGLOBIN 11.4 g/dL (11.5-14.8); LYMPHOCYTES # (AUTO) 1.2 /CMM (0.8-4.8); LYMPHOCYTES % (AUTO) 9.5 % (20.0-44.0); MEAN CORPUSCULAR HGB CONC 33 g/dl (31.0-36.0); MEAN CORPUSCULAR VOLUME 86 fL (82-100); MONOCYTES # (AUTO) 0.6 /CMM (0.1-1.30); MONOCYTES % (AUTO) 4.6 % (2.0-12.0); NEUTROPHILS # (AUTO) 10.7 /CMM (1.8-8.9); NEUTROPHILS % (AUTO) 85.3 % (43.0-81.0); PLATELET COUNT (AUTO) 261 /CMM (150-450); RED BLOOD CELL COUNT(AUTO) 4.05 MIL/uL (4.0-5.2); WHITE BLOOD COUNT (AUTO) 12.5 K/uL (4.3-11.0)
--- NOTE | 2019-08-25 07:30 | NUR ---
M/S RN NOTES PATIENT AWAKE IN BED, NO RESPIRATORY DISTRESS, COMPLAINING OF LEFT FLANK PAIN BUT TOLERABLE AT THIS TIME AT 5/10. SKIN WARM TO TOUCH, IV ACCESS SITE INTACT AND PATENT ON THE LAC #20G NS INFUSING AT 75ML/HR. PATIENT'S NEEDS ATTENDED, BED ON LOWEST LOCKED POSITION, CALL LIGHT WITHIN REACH. WILL CONTINUE TO MONITOR.
--- NOTE | 2019-08-25 07:37 | NUR ---
MS RN NOTES PATIENT IN BED RESTING, ALERT AND ORIENTED X 4. ON NASAL CANNULA 2L, WITH NO SIGNS OF RESPIRATORY DISTRESS PRESENT. PATIENT ON CONTACT PRECAUTIONS. PATIENT IV ACCESS IN PLACE RUNNING NS AT 75ml/hr. PATIENT SKIN KEPT CLEAN AND DRY. PATIENT COMPLAINS OF NO PAIN OR DISCOMFORT. PROVIDED COMFORT MEASURES TO PATIENT. SAFETY PRECAUTIONS IN PLACE WITH BED IN THE LOWEST POSITION, BILATERAL SIDE RAILS UP, BED LOCKED, BED ALARM ON, AND CALL LIGHT WITHIN EASY REACH. WILL ENDORSE MARTA TO UPCOMING DAYSHIFT NURSE.
[2019-08-25 07:39] LABS: CALCIUM, SERUM 8.9 mg/dL (8.5-10.1); CREATININE 0.7 mg/dL (0.6-1.3); POTASSIUM 3.5 mmol/L (3.5-5.1)
[2019-08-25 08:00] VITALS: BP 127/91
[2019-08-25] MEDS: GABAPENTIN 100 MG CAPSULE PO SCH (08:39)
[2019-08-25] MEDS: AMLODIPINE BESYLATE 5 MG TABLET PO SCH (08:39)
[2019-08-25] MEDS: LINAGLIPTIN 5 MG TABLET PO SCH (08:39)
[2019-08-25] MEDS: INSULIN ASPART/LISPRO 100 UNIT/ML CARTRIDGE SQ SCH ×2 (08:55→18:15)
[2019-08-25] MEDS ORDERED: POLYETHYLENE GLYCOL 3350 17 GM POWD.PACK PO ONE (13:00)
[2019-08-25] MEDS ORDERED: SULF1TAB48 PO (13:27)
[2019-08-25] MEDS ORDERED: TRAM50TA PO (13:27)
[2019-08-25] MEDS ORDERED: ONDA4TAB5 PO (13:27)
[2019-08-25] MEDS: TRAMADOL HCL 50 MG TABLET PO PRN (13:48)
[2019-08-25 16:00] VITALS: BP 139/87
--- NOTE | 2019-08-25 18:30 | NUR ---
M/S RN NOTES PATIENT AWAKE IN BED, NO RESPIRATORY DISTRESS, COMPLAINING OF LEFT FLANK PAIN BUT TOLERABLE AT THIS TIME WITH PAIN MEDICATION ORDERED. SKIN WARM TO TOUCH, IV ACCESS SITE INTACT AND PATENT ON THE LAC #20G SL. PATIENT'S NEEDS ATTENDED, BED ON LOWEST LOCKED POSITION, CALL LIGHT WITHIN REACH. WILL ENDORSE TO ONCOMING NURSE.
--- NOTE | 2019-08-25 19:30 | NUR ---
MS RN NOTES PATIENT RECEIVED IN BED RESTING COMFORTABLY. ALERT AND ORIENTED X 4. CONTACT PRECAUTIONS IN PLACE. PATIENT PRESENTS NO SIGNS OF SOB, NO RESPIRATORY DISTRESS, AND WITH EVEN NON-LABORED BREATHING. IV ACCESS IN PLACE, INTACT AND PATENT. SAFETY PRECAUTIONS IN PLACE WITH BED IN THE LOWEST POSITION, BED LOCKED, BED ALARM ON, BILATERAL SIDE RAILS UP, AND CALL LIGHT WITHIN EASY REACH. WILL CONTINUE TO MONITOR PATIENT.
[2019-08-25 20:00] VITALS: BP 117/79
[2019-08-25] MEDS: SIMVASTATIN 10 MG TABLET PO SCH (21:37)
[2019-08-25] MEDS: INSULIN GLARGINE, 100 UNIT/ML CARTRIDGE SQ SCH (21:52)
--- NOTE | 2019-08-25 21:59 | NUR ---
MS RN NOTES PATIENT'S BLOOD SUGAR 95, PER SLIDING SCALE NO INSULIN NEEDED. LANTUS INSULIN GIVEN SCHEDULE, PROVIDED SNACKS AND JUICE TO PATIENT. WILL CONTINUE TO MONITOR PATIENT.
[2019-08-26] MEDS: MEROPENEM 500 MG in IV NS 0.9% 100 ML IV SCH ×2 (00:01→10:00)
[2019-08-26] MEDS: ACETAMINOPHEN 325 MG TABLET PO PRN (00:17)
--- NOTE | 2019-08-26 00:23 | NUR ---
MS RN NOTES PATIENT STATES SHE HAS PAIN, REFUSED TRAMADOL WHEN OFFERED PAIN MEDICATION. ADMINISTERED ACETAMINOPHEN 650mg PO. VITAL SIGNS WNL, BP 97/79 PULSE 98, WILL CONTINUE TO MONITOR PATIENT.
[2019-08-26] MEDS: IBUPROFEN 400 MG TABLET PO PRN ×2 (02:47→09:28)
[2019-08-26] MEDS: TRAMADOL HCL 50 MG TABLET PO PRN (04:59)
--- NOTE | 2019-08-26 05:02 | NUR ---
MS RN NOTES PATIENT IN PAIN, RATES PAIN LEVEL 6/10, PATIENT INSISTED ON TRAMADOL PO MEDICATION, ADMINISTERED MEDICATION VITAL SIGNS STABLE, WILL CONTINUE TO MONITOR PATIENT AND REASSESS PAIN LEVEL.
[2019-08-26] MEDS: INSULIN REGULAR, HUMAN 100 UNIT/ML 3 ML VIAL SQ PRN ×2 (06:54→12:13)
--- NOTE | 2019-08-26 06:58 | NUR ---
MS RN NOTES PATIENT'S BLOOD SUGAR 139, PER SLIDING SCALE PROTOCOL, ADMINISTERED 2 UNITS OF INSULIN. SNACK AND JUICE PROVIDED TO THE PATIENT. WILL CONTINUE TO MONITOR PATIENT.
--- NOTE | 2019-08-26 07:18 | NUR ---
M/S RN NOTES PATIENT AWAKE IN BED, NO RESPIRATORY DISTRESS, PAIN TOLERABLE AT THIS TIME. SKIN WARM TO TOUCH, IV ACCESS SITE INTACT AND PATENT. PATIENT'S NEEDS ATTENDED, BED ON LOWEST LOCKED POSITION, CALL LIGHT WITHIN REACH. WILL CONTINUE TO MONITOR.
--- NOTE | 2019-08-26 07:36 | NUR ---
MS RN NOTES PATIENT IN BED, RESTING. ALERT AND ORIENTED X 4. PATIENT ON CONTACT PRECAUTIONS. PATIENT PRESENTS NO SIGNS OF SOB WITH EVEN NON-LABORED BREATHING. SKIN KEPT CLEAN AND DRY. MET ALL PATIENT'S NEEDS AND PROVIDED COMFORT MEASURES. IV ACCESS IN PLACE AND INTACT. SAFETY PRECAUTIONS IN PLACE WITH BED IN THE LOWEST POSITION, BED LOCKED, BILATERAL SIDE-RAILS UP, BED ALARM ON, AND BILATERAL SIDE RAILS UP. WILL ENDORSE MARTA TO UPCOMING DAYSHIFT NURSE.
[2019-08-26 08:01] VITALS: BP 115/83
[2019-08-26] MEDS: BLOOD SUGAR DIAGNOSTIC 1 EACH STRIP IN SCH ×2 (08:29→12:12)
[2019-08-26 09:28] VITALS: BP 115/83
[2019-08-26] MEDS: AMLODIPINE BESYLATE 5 MG TABLET PO SCH (09:28)
[2019-08-26] MEDS: GABAPENTIN 100 MG CAPSULE PO SCH (09:28)
[2019-08-26] MEDS: LINAGLIPTIN 5 MG TABLET PO SCH (09:28)
[2019-08-26] MEDS: INSULIN ASPART/LISPRO 100 UNIT/ML CARTRIDGE SQ SCH (10:02)
--- NOTE | 2019-08-26 15:30 | NUR ---
M/S RN NOTES PATIENT DISCHARGED TODAY IN STABLE CONDITION, PATIENT IN NO RESPIRATORY DISTRESS, NO C/O PAIN AT THIS TIME. PATIENT WITH NO FEVER OR CHILLS. VSS, SKIN WARM TO TOUCH. IV REMOVED AND APPLIED PRESSURE DRESSING. PATIENT GIVEN DISCHARGE INSTRUCTIONS, VERBALIZED UNDERSTANDING. PATIENT'S BELONGINGS ACCOUNTED FOR AND SIGNED. SKIN ASSESSED, NO SKIN BREAKDOWN. PATIENT'S NEEDS ATTENDED. PATIENT ESCORTED TO LOBBY WITH FAMILY AND STAFF VIA WHEELCHAIR. PATIENT LEFT IN PRIVATE CAR.
== END 2019-08-26 15:30 | disposition home or self-care (01) | DRG 463 ==
LOC: ER 11:25 → MED 13:57
PROVIDERS: ADMIT Nurse Practitioner Acute Care; ATTEND Nurse Practitioner Acute Care
DX: N10 Acute pyelonephritis (principal); E11.65 Type 2 diabetes mellitus with hyperglycemia; E87.1 Hypo-osmolality and hyponatremia; E78.5 Hyperlipidemia, unspecified; I10 Essential (primary) hypertension; Z87.81 Personal history of (healed) traumatic fracture; E86.1 Hypovolemia; Z83.3 Family history of diabetes mellitus; Z87.891 Personal history of nicotine dependence; Q82.5 Congenital non-neoplastic nevus; E83.52 Hypercalcemia; E86.9 Volume depletion, unspecified; B96.20 Unspecified Escherichia coli [E. coli] as the cause of diseases classified elsewhere; D72.829 Elevated white blood cell count, unspecified; Z16.12 Extended spectrum beta lactamase (ESBL) resistance
CPT/HCPCS: 36415; 71045-TC; 80048-TC; 80061-TC; 80076-TC; 81000-TC; 82962-TC; 83605-TC; 83690-TC; 83735-TC; 83935-TC; 84100-TC; 84300-TC; 84443-TC; 85025-TC; 87040-TC; 87081-TC; 87086-TC; 87186-TC; A4216; G0378; J0696; J1815; J1885; J2185; J2405; J7030; J7050; J7060

== ENCOUNTER 2019-09-19 16:18 | Emergency (ER) | payer OTHER ==
[~2019-09-19] VITALS: Ht 160 cm; Wt 54.4 kg
[~2019-09-19 16:18] MED LIST changes: -ALOG25TA2 PO; -NAPR-1192 PO; +ONDA4TAB5 PO; -SIMV-46 PO; +SIMV10TA98 PO; +SULF1TAB48 PO; +TRAM50TA PO
--- NOTE | 2019-09-19 16:25 | NUR ---
BILATERAL FLANK PAIN AND LEFT UPPER BACK PAIN X 4 DAYS, URINE HAS A BAD SMELL ACCORDING TO HER, pt aaox4, -sob, nad noted, vss, pending md street.
[2019-09-19] MEDS ORDERED: ONDANSETRON HCL/PF 4 MG/2 ML VIAL IVP ONE (17:00)
[2019-09-19] MEDS ORDERED: ACETAMINOPHEN ES 500 MG TABLET PO ONE (17:00)
[2019-09-19] MEDS ORDERED: IV NS 0.9% 1,000 ML BAG IV ONE (17:00)
--- NOTE | 2019-09-19 17:00 | NUR ---
URINE COLELCTED AND SENT TO LAB
[2019-09-19 17:01] VITALS: BP 123/90
[2019-09-19] MEDS ORDERED: ONDANSETRON HCL/PF 4 MG/2 ML VIAL ONE (17:01)
[2019-09-19] MEDS ORDERED: ACETAMINOPHEN ES 500 MG TABLET ONE (17:02)
[2019-09-19 17:04] LABS: BASOPHILS # (AUTO) 0.1 /CMM (0.0-0.2); BASOPHILS % (AUTO) 1.1 % (0.0-2.0); EOSINOPHILS % (AUTO) 0.1 % (0.0-6.0); HEMATOCRIT 38 % (33-45); HEMOGLOBIN 12.6 g/dL (11.5-14.8); LYMPHOCYTES % (AUTO) 17.1 % (20.0-44.0); MEAN CORPUSCULAR HGB CONC 33 g/dl (31.0-36.0); MEAN CORPUSCULAR VOLUME 85 fL (82-100); MONOCYTES # (AUTO) 0.9 /CMM (0.1-1.30); MONOCYTES % (AUTO) 7.5 % (2.0-12.0); NEUTROPHILS # (AUTO) 8.6 /CMM (1.8-8.9); NEUTROPHILS % (AUTO) 74.2 % (43.0-81.0); PLATELET COUNT (AUTO) 282 /CMM (150-450); RED BLOOD CELL COUNT(AUTO) 4.51 MIL/uL (4.0-5.2); WHITE BLOOD COUNT (AUTO) 11.6 K/uL (4.3-11.0)
[2019-09-19 17:07] LABS: BILIRUBIN,URINE Negative (NEGATIVE); BLOOD, URINE Small Ery/uL (NEGATIVE); COLOR,URINE Yellow (YELLOW); KETONES,URINE Trace (NEGATIVE); LEUKOCYTE ESTERASE ,URINE Large (NEGATIVE); NITRITE, URINE Positive (NEGATIVE); PROTEIN,URINE Trace mg/dl (NEGATIVE); UGLUCOSE 100 MG/DL mg/dL (NEGATIVE); UROBILINOGEN,URINE 0.2 EU/dL (0.2)
[2019-09-19 17:10] LABS: APPEARANCE,URINE CLOUDY (CLEAR); BACTERIA,URINE Moderate /HPF (None Seen); SQUAMOUS EPITHELIAL CELL,UR Moderate /HPF (None Seen); WBC,URINE TOO NUMEROUS TO COUN /HPF (0-3)
[2019-09-19 17:12] LABS: CALCIUM, SERUM 9.2 mg/dL (8.5-10.1); CREATININE 0.8 mg/dL (0.6-1.3); POTASSIUM 3.9 mmol/L (3.5-5.1)
[2019-09-19 17:29] LABS: ALBUMIN 3.6 g/dL (3.4-5.0); BILIRUBIN,DIRECT 0.1 mg/dL (0.0-0.2); BILIRUBIN,TOTAL 0.5 mg/dL (0.2-1.0); TOTAL PROTEIN, SERUM 8.2 g/dL (6.4-8.2)
[2019-09-19] MEDS ORDERED: D5W IV ONE ×2 (18:00→18:30)
[2019-09-19] MEDS ORDERED: GENTAMICIN IV ONE ×2 (18:00→18:30)
--- NOTE | 2019-09-19 19:00 | NUR ---
PER AUBREY MCMAHON, ONCE IV ATB FINISHES PT MAY GO
[2019-09-19] MEDS ORDERED: TRAMADOL HCL 50 MG TABLET ONE (19:18)
[2019-09-19] MEDS ORDERED: TRAMADOL HCL 50 MG TABLET PO ONE (19:30)
--- NOTE | 2019-09-19 20:33 | NUR ---
Patient discharged to home in stable condition. Written and verbal after care instructions given. Patient verbalizes understanding of instruction. IV removed. Catheter intact and site benign. Pressure and 4x4 applied to site. No bleeding noted.
== END 2019-09-19 20:33 | disposition home or self-care (01) ==
LOC: ER 16:20
DX: N39.0 Urinary tract infection, site not specified (principal); E11.65 Type 2 diabetes mellitus with hyperglycemia; I10 Essential (primary) hypertension; E78.5 Hyperlipidemia, unspecified; Z98.890 Other specified postprocedural states; Z88.5 Allergy status to narcotic agent; Z88.8 Allergy status to other drugs, medicaments and biological substances; Z79.899 Other long term (current) drug therapy
CPT/HCPCS: 36415; 71045; 80048; 80076; 81001; 83690; 85025; 87040 ×2; 87077; 87086; 87186; 96361; 96365; 96375; 99284; J1580; J2405; J7030; J7060; 81000-TC

== ENCOUNTER 2020-01-21 11:32 | Inpatient (IN) | payer OTHER ==
[~2020-01-21] VITALS: Ht 157.5 cm; Wt 57.6 kg
[2020-01-21] MEDS ORDERED: IV NS 0.9% 1,000 ML BAG IV ONE (12:00)
[2020-01-21] MEDS ORDERED: GENTAMICIN 80 MG in IV D5W 50 ML IV ONE (12:00)
--- NOTE | 2020-01-21 12:12 | NUR ---
BIBS FROM HOME TO ER BED 6. AOX4. NOT IN RESP DISTRESS. NOPN AMBULATORY BECAUSE OF L ANKLE PAIN WHICH SHE HAS BEEN DEALING WITH EVEN PRIOR TO ARRIVAL. CAME IN FOR PAIN ON HER L LOWER ABDOMEN THAT IS EXTENDING TO HER FLANK. PAIN IS RATED 7/10. PT IS COMPLAINING OF URINARY FREQUENCY. NOTED FEVER 101.6 ORAL. MD WAS AT THE BEDSIDE FOR EVAL. ORDERS RECEIVED, NOTED AND CARRIED OUT.
[2020-01-21 12:16] LABS: APPEARANCE,URINE CLEAR (CLEAR); BASOPHILS # (AUTO) 0.1 /CMM (0.0-0.2); BASOPHILS % (AUTO) 0.6 % (0.0-2.0); BILIRUBIN,URINE NEGATIVE (NEGATIVE); BLOOD, URINE TRACE-INTA Ery/uL (NEGATIVE); COLOR,URINE YELLOW (YELLOW); HEMATOCRIT 39 % (33-45); HEMOGLOBIN 12.9 g/dL (11.5-14.8); KETONES,URINE NEGATIVE (NEGATIVE); LEUKOCYTE ESTERASE ,URINE SMALL (NEGATIVE); LYMPHOCYTES % (AUTO) 5.5 % (20.0-44.0); MEAN CORPUSCULAR HGB CONC 33 g/dl (31.0-36.0); MEAN CORPUSCULAR VOLUME 85 fL (82-100); MONOCYTES # (AUTO) 0.2 /CMM (0.1-1.30); MONOCYTES % (AUTO) 1.3 % (2.0-12.0); NEUTROPHILS # (AUTO) 16.8 /CMM (1.8-8.9); NEUTROPHILS % (AUTO) 92.6 % (43.0-81.0); NITRITE, URINE POSITIVE (NEGATIVE); PLATELET COUNT (AUTO) 242 /CMM (150-450); PROTEIN,URINE NEGATIVE (NEGATIVE); RED BLOOD CELL COUNT(AUTO) 4.63 MIL/uL (4.0-5.2); UGLUCOSE >=1000 mg/dL (NEGATIVE); UROBILINOGEN,URINE 0.2 EU/dL (0.2); WHITE BLOOD COUNT (AUTO) 18.2 K/uL (4.3-11.0)
--- NOTE | 2020-01-21 12:24 | NUR ---
COVID SWAB DONE AND SENT LAB
[2020-01-21] MEDS ORDERED: ACETAMINOPHEN ES 500 MG TABLET ONE (12:25)
[2020-01-21] MEDS ORDERED: ACETAMINOPHEN ES 500 MG TABLET PO ONE (12:30)
[2020-01-21 12:41] LABS: CALCIUM, SERUM 9.5 mg/dL (8.5-10.1); CARBON DIOXIDE 21 mmol/L (21-32); CHLORIDE 97 mmol/L (98-107); CREATININE 0.9 mg/dL (0.6-1.3); GLUCOSE 314 mg/dL (74-106); POTASSIUM 4.2 mmol/L (3.5-5.1); SODIUM SERUM 131 mmol/L (136-145); UREA NITROGEN, BLOOD 15 mg/dL (7-18)
[2020-01-21 12:45] LABS: ALANINE AMINOTRANSFERASE 24 U/L (12-78); ALBUMIN 3.9 g/dL (3.4-5.0); ALKALINE PHOSPHATASE 121 U/L (46-116); ASPARTATE AMINOTRANSFERASE 14 U/L (15-37); BILIRUBIN,DIRECT 0.1 mg/dL (0.0-0.2); BILIRUBIN,TOTAL 0.5 mg/dL (0.2-1.0); TOTAL PROTEIN, SERUM 7.8 g/dL (6.4-8.2)
[2020-01-21 13:15] LABS: BACTERIA,URINE Many /HPF (None Seen); RBC,URINE 0-2 /HPF (0-2); SQUAMOUS EPITHELIAL CELL,UR Few /HPF (None Seen)
[2020-01-21] MEDS ORDERED: ASPI-1169 PO (13:15)
[2020-01-21] MEDS ORDERED: ERGO500014 PO (13:15)
[2020-01-21] MEDS ORDERED: FLUT16SP BNOSTRILS (13:15)
--- NOTE | 2020-01-21 14:41 | NUR ---
ROOM ASSIGNMENT: 205 MS
[2020-01-21] MEDS ORDERED: LORA10TA7 PO (14:46)
[2020-01-21] MEDS ORDERED: OMEG1CAP PO (14:46)
--- NOTE | 2020-01-21 14:48 | NUR ---
REPORT GIVEN TO MYLENE STOUT FOR MARTA
--- NOTE | 2020-01-21 14:55 | NUR ---
PT TRANSPORTED TO UNIT ON GURNEY WITH EMT AT BEDSIDE. PT ISIN STABLE CONDITION. NAD NOTED
[2020-01-21] MEDS ORDERED: INSU100I26 SQ (15:27)
--- NOTE | 2020-01-21 15:30 | NUR ---
MS POTATO INSPECTOR NOTES RECEIVED PT FROM ER DEPT VIA [facility] AT 1510, PT AWAKE, A/OX4, ICELANDIC SPEAKING BUT CAN SPEAK AND UNDERSTAND TRISTANIAN. PT TOLERATING RA, WITH NO ACUTE RESPIRATORY DISTRESS. PT STATED HAS STILL ABDOMINAL PAIN BUT TOLERABLE AT THIS TIME. PT DENIES SMOKING AND QUIT 20 YRS AGO. ADMITTING MD/SK MADE AWARE, ORDERS PLACED AND CARRIED OUT. PIV TO LEFT WRIST G18, STARTED ON IVF 1/2NS AT 75ML/HR, INTACT AND FLUID INFUSING WELL. PT ORIENTED TO THE ROM, STAFFS, ETC. SKIN ASSESSED; SKIN INTACT WITH MULTIPLE INCISION SCARS TO LEFT LEG-FOOT. PT KEPT COMFORTABLE IN BED. VS TAKEN ND RECORDED. CALL LIGHT KEPT WITHIN REACH. WILL CONTINUE PLAN OF CARE.
[2020-01-21] MEDS: IV 1/2NS 1000 ML 1,000 ML IV PRN (15:56)
[2020-01-21] MEDS ORDERED: Z GUARD REMEDY 2 OZ OINT TP PRN (16:00)
[2020-01-21] MEDS ORDERED: ONDANSETRON HCL/PF 4 MG/2 ML VIAL IVP PRN (16:00)
[2020-01-21] MEDS ORDERED: ZOLPIDEM TARTRATE 5 MG TABLET PO PRN (16:00)
[2020-01-21] MEDS ORDERED: MAG HYDROX/AL HYDROX/SIMETH 30 ML UDC PO PRN (16:00)
[2020-01-21] MEDS ORDERED: MAGNESIUM HYDROXIDE 30 ML UDC PO PRN (16:00)
[2020-01-21] MEDS ORDERED: MEROPENEM 1 G in IV NS 0.9% 100 ML IV ONE (17:00)
--- NOTE | 2020-01-21 17:00 | NUR ---
MS RN NOTES RECEIVED CALL FROM LAB REGARDING LACTIC ACID OF 2.3. ADMITTING MD/SK AWARE, PT NOW ON IVF HYDRATION. WILL CONTINUE TO MONITOR.
[2020-01-21] MEDS: ACETAMINOPHEN 325 MG TABLET PO PRN (17:02)
[2020-01-21 18:14] VITALS: BP 102/72
--- NOTE | 2020-01-21 18:48 | NUR ---
MS RN NOTES PT REMAINS AWAKE, A/OX4, IRAQI SPEAKING BUT CAN SPEAK AND UNDERSTAND INDONESIAN. PT TOLERATING RA, WITH NO ACUTE RESPIRATORY DISTRESS. PT REPORTED TOLERABLE ABD PAIN, AND JUST HAD TYLENOL AND OKAY WITH IT. IVF 1/2NS AT 75ML/HR LEFT WRIST G18, INTACT AND FLUID INFUSING WELL. PT KEPT COMFORTABLE IN BED. ALL NEEDS AND CARE ATTENDED. CALL LIGHT KEPT WITHIN REACH. PT'S IN BED IN LOWEST, LOCKED POSITION WITH SR X3. WILL ENDORSE TO INCOMING NIGHT NURSE FOR MARTA.
--- NOTE | 2020-01-21 19:05 | NUR ---
RN MS OPENING NOTES RECEIVED PATIENT IN BED AWAKE ALERT AND ORIENTED X4, RESPIRATIONS EVEN AND UNLABORED WITH EQUAL RISE AND FALL OF CHEST, AT THIS TIME DENIES ANY PAIN OR DISCOMFORT, IV SITE TO LEFT WRIST #18 G INTACT AND PATENT, NO REDNESS NO INFILTRATION PRESENT, IVF RUNNING ORDERED, ORIENTED TO STAFF AND CALL LIGHT AND KEPT WITHIN REACH, SAFETY PRECAUTIONS IN PLACE, LOW BED AND LOCKED, ALL NEEDS ATTENDED AT THIS TIME, REMAINS AFEBRILE AT THIS TIME, WILL CONTINUE TO MONITOR AND ATTEND TO NEEDS.
[2020-01-21 20:00] VITALS: BP 117/55
[2020-01-21 20:14] VITALS: BP 117/55
[2020-01-21] MEDS ORDERED: GENTAMICIN 80 MG in IV D5W 50 ML IV SCH (21:00)
[2020-01-21] MEDS: HYDROCODONE/APAP 5/325MG TABLET PO PRN (23:34)
--- NOTE | 2020-01-21 23:34 | NUR ---
RN MS NOTES PATIENT COMPLAINED OF PAIN TO GENERALIZED BODY STATES ACHY 5/10. OFFERED TYLENOL PATIENT DID NOT WANT TYLENOL OFFERED NORCO PATIENT AGREED. REMAINS AFEBRILE VS WNL. NORCO PRN ORDERED GIVEN WILL CONTINUE TO MONITOR.
[2020-01-22] MEDS: MEROPENEM 1 G in IV NS 0.9% 100 ML IV SCH ×3 (01:31→16:27)
--- NOTE | 2020-01-22 06:20 | NUR ---
RN MS CLOSING NOTES PATIENT IN BED SLEPING EASILY AROUSABLE ALERT AND ORIENTED X4, RESPIRATIONS EVEN AND UNLABORED WITH EQUAL RISE AND FALL OF CHEST, AT THIS TIME DENIES ANY PAIN OR DISCOMFORT,NORCO WAS EFFECTIVE, NO ADVERSE REACTIONS PRESENT, IV SITE TO LEFT WRIST #18 G INTACT AND PATENT, NO REDNESS NO INFILTRATION PRESENT, IVF RUNNING ORDERED, CALL LIGHT KEPT WITHIN REACH, ASSISTED TO THE RESTROOM, SAFETY PRECAUTIONS IN PLACE, LOW BED AND LOCKED, ALL NEEDS ATTENDED AT THIS TIME, REMAINS AFEBRILE THROUGHOUT SHIFT, WILL CONTINUE TO MONITOR AND ATTEND TO NEEDS AND ENDORSE TO NEXT SHIFT, REMAINS COMFORTABLE.
[2020-01-22 06:46] LABS: BASOPHILS # (AUTO) 0.1 /CMM (0.0-0.2); BASOPHILS % (AUTO) 0.3 % (0.0-2.0); HEMATOCRIT 36 % (33-45); LYMPHOCYTES # (AUTO) 1.2 /CMM (0.8-4.8); LYMPHOCYTES % (AUTO) 6.4 % (20.0-44.0); MEAN CORPUSCULAR HGB CONC 33 g/dl (31.0-36.0); MEAN CORPUSCULAR VOLUME 86 fL (82-100); MONOCYTES % (AUTO) 5.7 % (2.0-12.0); NEUTROPHILS # (AUTO) 15.8 /CMM (1.8-8.9); NEUTROPHILS % (AUTO) 87.6 % (43.0-81.0); PLATELET COUNT (AUTO) 190 /CMM (150-450); RED BLOOD CELL COUNT(AUTO) 4.26 MIL/uL (4.0-5.2); WHITE BLOOD COUNT (AUTO) 18.1 K/uL (4.3-11.0)
[2020-01-22 06:54] LABS: CALCIUM, SERUM 8.9 mg/dL (8.5-10.1); CREATININE 0.8 mg/dL (0.6-1.3); MAGNESIUM 1.7 mg/dL (1.8-2.4); PHOSPHORUS 2.4 mg/dL (2.5-4.9); POTASSIUM 3.8 mmol/L (3.5-5.1)
--- NOTE | 2020-01-22 07:06 | NUR ---
rn ms notes per patient request to check blood sugar fingerstick [id number].
[2020-01-22 07:29] LABS: THYROID STIMULATING HORMONE 0.386 uIU/mL (0.358-3.74)
--- NOTE | 2020-01-22 07:30 | NUR ---
RN Opening note Received patient in bed, AO x 3-4, able to responds all stimuli Denies pain or discomfort at this time. Respiratory unlabored in room air, no distress observed, Skin is warm to touch, kept clean/dry, intact IV site running IVF 1/2NS at 75 ml/hr. Keep bed in locked for with elevated HOB for ensure airway and aspiration precaution. Call light within reach, will continue to monitor.
[2020-01-22] MEDS: IV 1/2NS 1000 ML 1,000 ML IV PRN (07:40)
[2020-01-22] MEDS: ACETAMINOPHEN 325 MG TABLET PO PRN ×2 (07:51→16:30)
[2020-01-22 08:00] VITALS: BP 110/72
[2020-01-22] MEDS ORDERED: K PHOS NEUTRAL 250 MG TABLET PO ONE (11:00)
[2020-01-22] MEDS: Magnesium 1GM/D5W 100ML PREMIX 100 ML IV SCH ×2 (11:18→13:02)
[2020-01-22] MEDS: HYDROCODONE/APAP 5/325MG TABLET PO PRN ×2 (11:29→21:35)
[2020-01-22] MEDS ORDERED: DEXTROSE 50%-WATER 50 ML DISP.SYRIN IV PRN (14:30)
[2020-01-22 16:00] VITALS: BP 150/96
[2020-01-22] MEDS: BLOOD SUGAR DIAGNOSTIC 1 EACH STRIP VI SCH ×2 (16:25→21:30)
[2020-01-22] MEDS: INSULIN REGULAR, HUMAN 100 UNIT/ML 3 ML VIAL SQ PRN (16:30)
[2020-01-22] MEDS ORDERED: METFORMIN 500 MG TABLET PO SCH (17:00)
--- NOTE | 2020-01-22 18:21 | NUR ---
RN Closing note Patient in bed sleeping comfortably, denies pain or distress, skin is warm to touch, kept clean/dry, intact IV site running 1/2NS at 75ml/hr. Respiratory even and unlabored on room air, no distress observed. No s/s of adverse reaction observed from therapy, encourage oral fluid intake as tolerated. Keep bed in locked with elevated HOB for ensure airway and aspiration precaution. Call light within reach, will endorse power and recovery shift engineer.
--- NOTE | 2020-01-22 19:00 | NUR ---
RN MS OPENING NOTES RECEIVED PATIENT IN BED AWAKE ALERT AND ORIENTED X4, RESPIRATIONS EVEN AND UNLABORED WITH EQUAL RISE AND FALL OF CHEST, AT THIS TIME DENIES ANY PAIN OR DISCOMFORT, IV SITE TO LEFT WRIST #18 G INTACT AND PATENT, NO REDNESS NO INFILTRATION PRESENT, IVF RUNNING ORDERED, ORIENTED TO STAFF AND CALL LIGHT AND KEPT WITHIN REACH, SAFETY PRECAUTIONS IN PLACE, LOW BED AND LOCKED, ALL NEEDS ATTENDED AT THIS TIME, REMAINS AFEBRILE AT THIS TIME, ASSISTED TO THE RESTROOM AND BACK TO BED , LINENS AND CLOTHES CHANGED, WILL CONTINUE TO MONITOR AND ATTEND TO NEEDS. REMAINS COMFORTABLE AT THIS TIME.
[2020-01-22 20:00] VITALS: BP 104/66
[2020-01-22 20:17] VITALS: BP 104/66
[2020-01-22] MEDS: *INSULIN REGULAR(HUMULIN R)HUM 100 UNIT/ML VIAL SQ PRN (21:32)
--- NOTE | 2020-01-22 21:35 | NUR ---
RN MS NOTES. PATIENT COMPLAINED OF PAIN TO BACK AND GENERALIZED AREAS SUCH HEADACHE STATES "6/10". REQUESTED FOR NORCO. NORCO PRN GIVEN ORDERED, WILL CONTINUE TO MONITOR. VITAL SIGNS WNL.
[2020-01-23] MEDS: MEROPENEM 1 G in IV NS 0.9% 100 ML IV SCH ×3 (01:35→16:44)
[2020-01-23] MEDS: INSULIN REGULAR, HUMAN 100 UNIT/ML 3 ML VIAL SQ PRN ×3 (06:16→17:21)
[2020-01-23] MEDS: ACETAMINOPHEN 325 MG TABLET PO PRN (06:18)
--- NOTE | 2020-01-23 06:21 | NUR ---
RN MS NOTES PATIENT COMPLAINED OF HEADACHE AND BACK ACHE, REQUESTED FOR TYLENOL, STATES "9/10 ACHY AND WANTS TYLENOL" TYLENOL GIVEN ORDERED AND REQUESTED, WILL CONTINUE TO MONITOR FOR EFFECTIVENESS.
[2020-01-23] MEDS: BLOOD SUGAR DIAGNOSTIC 1 EACH STRIP VI SCH ×4 (06:31→21:02)
[2020-01-23 06:46] LABS: BASOPHILS % (AUTO) 0.3 % (0.0-2.0); EOSINOPHILS % (AUTO) 0.3 % (0.0-6.0); HEMATOCRIT 37 % (33-45); HEMOGLOBIN 12.2 g/dL (11.5-14.8); LYMPHOCYTES # (AUTO) 1.7 /CMM (0.8-4.8); LYMPHOCYTES % (AUTO) 15.8 % (20.0-44.0); MEAN CORPUSCULAR HGB CONC 33 g/dl (31.0-36.0); MEAN CORPUSCULAR VOLUME 85 fL (82-100); MONOCYTES # (AUTO) 0.5 /CMM (0.1-1.30); MONOCYTES % (AUTO) 4.9 % (2.0-12.0); NEUTROPHILS # (AUTO) 8.4 /CMM (1.8-8.9); NEUTROPHILS % (AUTO) 78.7 % (43.0-81.0); PLATELET COUNT (AUTO) 207 /CMM (150-450); RED BLOOD CELL COUNT(AUTO) 4.32 MIL/uL (4.0-5.2); WHITE BLOOD COUNT (AUTO) 10.7 K/uL (4.3-11.0)
[2020-01-23 06:53] LABS: CALCIUM, SERUM 8.9 mg/dL (8.5-10.1); CREATININE 0.8 mg/dL (0.6-1.3); MAGNESIUM 1.9 mg/dL (1.8-2.4); PHOSPHORUS 1.9 mg/dL (2.5-4.9)
--- NOTE | 2020-01-23 06:54 | NUR ---
RN MS CLOSING NOTES PATIENT IN BED AWAKE ALERT AND ORIENTED X4, RESPIRATIONS EVEN AND UNLABORED WITH EQUAL RISE AND FALL OF CHEST, IV SITE TO LEFT WRIST #18 G INTACT AND PATENT, NO REDNESS ,NO INFILTRATION PRESENT, IVF RUNNING ORDERED, ALL DUE MEDS GIVEN ORDERED, NO ADVERSE REACTIONS NOTED, CALL LIGHT KEPT WITHIN REACH, SAFETY PRECAUTIONS IN PLACE, LOW BED AND LOCKED, ALL NEEDS ATTENDED AT THIS TIME, REMAINED AFEBRILE THROUGHOUT SHIFT, ASSISTED TO THE RESTROOM AND BACK TO BED , WILL CONTINUE TO MONITOR AND ATTEND TO NEEDS. REMAINS COMFORTABLE AT THIS TIME WILL ENDORSE TO NEXT SHIFT.
[2020-01-23] MEDS: METFORMIN 500 MG TABLET PO SCH ×3 (07:29→17:18)
--- NOTE | 2020-01-23 07:30 | NUR ---
RN Opening note Received patient in bed, AO x 4, able to responds all stimuli, does no c/o pain or distress at this time. Skin is warm to touch, kept clean/dry, intact IV site running 1/2 NS at 75 ml/hr. Respiratory even and unlabored on room air. Keep bed in locked with elevated HOB for ensure airway and aspiration precaution. Call light within reach, will continue to monitor.
[2020-01-23 08:00] VITALS: BP 110/80
[2020-01-23] MEDS: IV 1/2NS 1000 ML 1,000 ML IV PRN (08:12)
--- NOTE | 2020-01-23 08:34 | NUR ---
Metformin given at 0730, not give at 0900 , pharmacy notified.
--- NOTE | 2020-01-23 11:00 | NUR ---
Noted gram negative Rods from blood culture, Dr. Mathis made aware.
--- NOTE | 2020-01-23 13:00 | NUR ---
Patient VTE score is 3, received order Lovenox 40mg SQ QD for VTE prophylaxis.
[2020-01-23] MEDS: ENOXAPARIN SODIUM 40 MG/0.4 ML DISP.SYRIN SQ SCH (13:16)
[2020-01-23] MEDS: HYDROCODONE/APAP 5/325MG TABLET PO PRN ×2 (13:23→21:00)
[2020-01-23] MEDS ORDERED: TRAMADOL HCL 50 MG TABLET PO PRN (13:30)
[2020-01-23] MEDS: GABAPENTIN 100 MG CAPSULE PO SCH (14:26)
[2020-01-23] MEDS: ASPIRIN 81 MG TAB.CHEW PO SCH (14:26)
[2020-01-23] MEDS: AMLODIPINE BESYLATE 5 MG TABLET PO SCH (14:27)
[2020-01-23] MEDS ORDERED: K PHOS NEUTRAL 250 MG TABLET PO ONE (14:30)
--- NOTE | 2020-01-23 14:45 | NUR ---
Patient has Urology consult/Dr. Maldonado and left massage number at [phone].
[2020-01-23 16:00] VITALS: BP 125/83
--- NOTE | 2020-01-23 18:25 | NUR ---
RN Closing note Patient in bed comfortably, consumed dinner 75%, took all due medications with compliance. Does no c/o pain or distress at this time. Skin ia warm to touch, keep clean/dry, intact IV site. Respiratory even and unlabored on room air, no distress observed. Keep bed in locked low bed with elevated HOB for ensure airway and aspiration precaution. Call light within reach, all needs met, will endorse group chief operator.
--- NOTE | 2020-01-23 19:00 | NUR ---
RN MS OPENING NOTES RECEIVED PATIENT IN BED AWAKE, ALERT AND ORIENTED X4, RESPIRATIONS EVEN AND UNLABORED WITH EQUAL RISE AND FALL OF CHEST, STATES SOME DISCOMFORT TO HER BACK BUT WILL LET ME KNOW WHEN SHE WANTS PAIN MEDICATION, IV SITE TO LEFT WRIST #18 G INTACT AND PATENT, NO REDNESS NO INFILTRATION PRESENT, IVF RUNNING ORDERED, ORIENTED TO STAFF AND CALL LIGHT AND KEPT WITHIN REACH, SAFETY PRECAUTIONS IN PLACE, LOW BED AND LOCKED, ALL NEEDS ATTENDED AT THIS TIME, REMAINS AFEBRILE AT THIS TIME, WILL CONTINUE TO MONITOR AND ATTEND TO NEEDS. REMAINS COMFORTABLE AT THIS TIME.
[2020-01-23 20:00] VITALS: BP 130/87
--- NOTE | 2020-01-23 21:00 | NUR ---
rn ms notes patient complained of pain to back and headache states 10/10 requested for norco prn vs wnl. norco given as ordered, lights dimmed, room kept quiet, toileting offered, fluids offered, will continue to monitor for effectiveness.
[2020-01-23] MEDS: *INSULIN REGULAR(HUMULIN R)HUM 100 UNIT/ML VIAL SQ PRN (21:13)
[2020-01-23] MEDS ORDERED: INSULIN GLARGINE, 100 UNIT/ML CARTRIDGE SQ SCH ×2 (22:00)
[2020-01-23] MEDS ORDERED: SIMVASTATIN 10 MG TABLET PO SCH (22:00)
[2020-01-24] MEDS: MEROPENEM 1 G in IV NS 0.9% 100 ML IV SCH ×3 (01:11→16:16)
[2020-01-24] MEDS: INSULIN REGULAR, HUMAN 100 UNIT/ML 3 ML VIAL SQ PRN ×2 (06:04→12:39)
[2020-01-24] MEDS: BLOOD SUGAR DIAGNOSTIC 1 EACH STRIP VI SCH ×3 (06:06→17:30)
[2020-01-24] MEDS: IV 1/2NS 1000 ML 1,000 ML IV PRN (07:16)
[2020-01-24] MEDS: ACETAMINOPHEN 325 MG TABLET PO PRN (07:55)
[2020-01-24 08:00] VITALS: BP 149/100
--- NOTE | 2020-01-24 08:00 | NUR ---
MS RN OPENING NOTES Received Patient resting in bed. A/O x 4. VS stable with no acute distress. Breathing even and unlabored on room air with no respiratory distress. Denies pain. No signs and symptoms of pain. 18g PIV on left wrist clean, intact, patent and flushing well with 1/2NS infusing at 75ml/hr. Safety precautions in place. Bed locked and set to lowest position with side rails x 2 up. All needs rendered at this time. Call light within reach. Will continue to monitor.
[2020-01-24] MEDS: ASPIRIN 81 MG TAB.CHEW PO SCH (08:07)
[2020-01-24] MEDS: METFORMIN 500 MG TABLET PO SCH ×2 (08:07→16:16)
[2020-01-24] MEDS: GABAPENTIN 100 MG CAPSULE PO SCH (08:07)
[2020-01-24] MEDS: AMLODIPINE BESYLATE 5 MG TABLET PO SCH (08:08)
[2020-01-24] MEDS: ENOXAPARIN SODIUM 40 MG/0.4 ML DISP.SYRIN SQ SCH (08:12)
[2020-01-24 08:23] LABS: BASOPHILS # (AUTO) 0.1 /CMM (0.0-0.2); BASOPHILS % (AUTO) 0.9 % (0.0-2.0); EOSINOPHILS % (AUTO) 2.1 % (0.0-6.0); HEMATOCRIT 36 % (33-45); HEMOGLOBIN 12.2 g/dL (11.5-14.8); LYMPHOCYTES # (AUTO) 1.6 /CMM (0.8-4.8); LYMPHOCYTES % (AUTO) 22.3 % (20.0-44.0); MEAN CORPUSCULAR HGB CONC 34 g/dl (31.0-36.0); MEAN CORPUSCULAR VOLUME 86 fL (82-100); MONOCYTES # (AUTO) 0.6 /CMM (0.1-1.30); MONOCYTES % (AUTO) 7.7 % (2.0-12.0); NEUTROPHILS # (AUTO) 4.9 /CMM (1.8-8.9); PLATELET COUNT (AUTO) 246 /CMM (150-450); RED BLOOD CELL COUNT(AUTO) 4.25 MIL/uL (4.0-5.2); WHITE BLOOD COUNT (AUTO) 7.3 K/uL (4.3-11.0)
[2020-01-24 08:29] LABS: CALCIUM, SERUM 9.3 mg/dL (8.5-10.1); CREATININE 0.7 mg/dL (0.6-1.3); MAGNESIUM 1.9 mg/dL (1.8-2.4); PHOSPHORUS 2.7 mg/dL (2.5-4.9); POTASSIUM 4.3 mmol/L (3.5-5.1)
[2020-01-24] MEDS ORDERED: LORATADINE 10 MG TABLET PO SCH (09:00)
[2020-01-24] MEDS ORDERED: FLUTICASONE PROPIONATE 16 GM BOTTLE NS SCH (09:00)
[2020-01-24] MEDS ORDERED: Medication Not On Formulary EA (Omega-3 Fatty Acids/Fish Oil (Fish Oil 1,000 Mg Capsule) PO SCH (09:00)
--- NOTE | 2020-01-24 13:00 | NUR ---
MS RN NOTES PIV on left hand infiltrated. Removed intact IV. Patient in stable condition.
--- NOTE | 2020-01-24 14:00 | NUR ---
MS RN NOTES Obtained Midline insertion consent. Explained risks and benefits. Patient verbalized understanding and agreed. Consent placed in chart.
[2020-01-24] MEDS: HYDROCODONE/APAP 5/325MG TABLET PO PRN (14:15)
[2020-01-24 16:00] VITALS: BP 135/98
[2020-01-24] MEDS ORDERED: ERTA1VIA4 IJ (16:14)
--- NOTE | 2020-01-24 18:00 | NUR ---
MS RETAIL HELPER NOTES Patient discharged for home with home health at this time. Patient in stable condition. VS stable with no acute distress. Breathing even and unlabored on room air with no respiratory distress. Denies pain. No signs and symptoms of pain. Skin intact. CHINTAN Midline clean, intact, patent and flushing well. Provided teaching on midline care. Patient verbalized understanding. Medication reconciliation and discharge orders reviewed and explained to Patient. Patient verbalized understanding. All belongings with Patient. Patient will follow up with PCP within 1 week. Patient picked up by Guido ().
== END 2020-01-24 18:00 | disposition home health service (06) | DRG 720 ==
LOC: ER 11:35 → TELE2 14:54 → MEDSG2 15:25
PROVIDERS: ADMIT Student in an Organized Health Care Education/Training Program; ATTEND Hospitalist
PROC: 05HA33Z Insertion of Infusion Device into Left Brachial Vein, Percutaneous Approach (ICD-10-PCS; principal; 2020-01-24)
DX: A41.51 Sepsis due to Escherichia coli [E. coli] (principal); Z87.440 Personal history of urinary (tract) infections; E87.1 Hypo-osmolality and hyponatremia; I10 Essential (primary) hypertension; E78.5 Hyperlipidemia, unspecified; Z88.5 Allergy status to narcotic agent; Z88.8 Allergy status to other drugs, medicaments and biological substances; Z87.81 Personal history of (healed) traumatic fracture; Z79.899 Other long term (current) drug therapy; E11.65 Type 2 diabetes mellitus with hyperglycemia; B96.89 Other specified bacterial agents as the cause of diseases classified elsewhere; Z16.12 Extended spectrum beta lactamase (ESBL) resistance; Z83.3 Family history of diabetes mellitus; N10 Acute pyelonephritis; Z87.891 Personal history of nicotine dependence
CPT/HCPCS: 36410; 36415; 71045-TC; 80048-TC; 80061-TC; 80076-TC; 81000-TC; 82962-TC; 83605-TC; 83735-TC; 84100-TC; 84443-TC; 84484-TC; 85025-TC; 85730-TC; 87040-TC; 87081-TC; 87086-TC; 87186-TC; 97116-TC; 97530-TC; G0378; J1580; J1650; J1815; J2185; J2405; J3475; J3490; J7030; J7060

== ENCOUNTER 2021-02-14 10:57 | Emergency (ER) | payer OTHER ==
[~2021-02-14] VITALS: Ht 160 cm; Wt 56.7 kg
[~2021-02-14 10:57] MED LIST changes: +AMLO-212 PO; -AMLO5TAB9 PO; +ASPI-1169 PO; +ERGO500093 PO; +ERTA1VIA4 IJ; +FLUT16SP BNOSTRILS; +INSU100I26 SQ; +LORA10TA7 PO; +OMEG1CAP PO; -ONDA4TAB5 PO; -SULF1TAB48 PO
--- NOTE | 2021-02-14 11:38 | NUR ---
BIB FAMILY C/O LLE PAIN S/P SLIP AND FALL LAST NIGHT AT AROUND 2100. PT AAOX4, VSS. RR EVEN & UNLABORED. DENIES CP, SOB, DIZZINESS, N/V AT THIS TIME. PT SEEN & EVAL'D BY DR. COELHO. WILL CONT TO MONITOR.
--- NOTE | 2021-02-14 11:41 | NUR ---
Radiology at bedside
[2021-02-14] MEDS ORDERED: IBUPROFEN 600 MG TABLET ONE ×2 (11:50→12:29)
[2021-02-14] MEDS ORDERED: IBUPROFEN 600 MG TABLET PO ONE (12:00)
[2021-02-14] MEDS ORDERED: NAPR-1009 PO (12:41)
[2021-02-14 12:49] VITALS: BP 145/89
--- NOTE | 2021-02-14 12:49 | NUR ---
Patient discharged to home in stable condition. Written and verbal after care instructions given. Patient verbalizes understanding of instruction.
== END 2021-02-14 12:49 | disposition home or self-care (01) ==
LOC: ER 11:02
DX: M25.562 Pain in left knee (principal); I10 Essential (primary) hypertension; E78.5 Hyperlipidemia, unspecified; E11.9 Type 2 diabetes mellitus without complications; Z87.440 Personal history of urinary (tract) infections; Z98.890 Other specified postprocedural states; Z88.5 Allergy status to narcotic agent; Z88.6 Allergy status to analgesic agent; Z79.4 Long term (current) use of insulin; Z79.82 Long term (current) use of aspirin; Z79.899 Other long term (current) drug therapy
CPT/HCPCS: 73564-TC; 73590-TC; 73610-TC

== ENCOUNTER 2021-05-28 10:04 | Emergency (ER) | payer OTHER ==
[~2021-05-28] VITALS: Ht 160 cm; Wt 56.7 kg
[~2021-05-28 10:04] MED LIST changes: +NAPR-1009 PO
--- NOTE | 2021-05-28 10:24 | NUR ---
pt wheeled to er bed 12 c/o L sided hip and L leg pain s/p mechanical fall yesterday morning. pt denies any head trauma. rewquesting imaging studies. gowned and placed on monitor. stable vitals machine captain. awaiting md street.
--- NOTE | 2021-05-28 10:45 | NUR ---
dr bach at bedside for eval.
[2021-05-28] MEDS ORDERED: KETOROLAC TROMETHAMINE INJ 30 MG/ML VIAL IM ONE (11:00)
[2021-05-28] MEDS ORDERED: KETOROLAC TROMETHAMINE INJ 30 MG/ML VIAL ONE (11:19)
[2021-05-28 12:05] VITALS: BP 135/68
--- NOTE | 2021-05-28 12:05 | NUR ---
Patient discharged to home in stable condition. Written and verbal after care instructions given. Patient verbalizes understanding of instruction.
== END 2021-05-28 12:06 | disposition home or self-care (01) ==
LOC: ER 10:06
DX: M25.552 Pain in left hip (principal); M79.605 Pain in left leg; I10 Essential (primary) hypertension; E78.5 Hyperlipidemia, unspecified; E11.9 Type 2 diabetes mellitus without complications; Z98.890 Other specified postprocedural states; Z88.8 Allergy status to other drugs, medicaments and biological substances; Z88.6 Allergy status to analgesic agent; Z79.899 Other long term (current) drug therapy; Z79.4 Long term (current) use of insulin; Z79.82 Long term (current) use of aspirin; W18.39XA Other fall on same level, initial encounter; Y93.89 Activity, other specified; Y92.89 Other specified places as the place of occurrence of the external cause; Y99.8 Other external cause status
CPT/HCPCS: 73503; 73590; 96372; 99284; J1885; 73502

== ENCOUNTER 2021-10-12 21:27 | Emergency (ER) | payer OTHER ==
[~2021-10-12] VITALS: Ht 170.2 cm; Wt 61.2 kg
--- NOTE | 2021-10-12 21:46 | NUR ---
ER BED 6 - [id number] FROM HOME C/O LEFT KNEE PAIN S/P MECH TRIP AND FALL - HT -KO. NO SOB. NO CHEST PAIN.
--- NOTE | 2021-10-12 21:59 | NUR ---
TURBINE TECHNICIAN AT PT'S BEDSIDE
--- NOTE | 2021-10-12 22:40 | NUR ---
DR. BRAUN PAGED FOR ORTHO CONSULT
--- NOTE | 2021-10-12 23:07 | NUR ---
[facility] 2HRS ETA.
[2021-10-12 23:10] VITALS: BP 133/89
--- NOTE | 2021-10-13 00:20 | NUR ---
[facility] at bedside for pickup
--- NOTE | 2021-10-13 00:27 | NUR ---
REPORT GIVEN TO [facility] FOR PT TO DC HOME. Patient discharged to home in stable condition. Written and verbal after care instructions given. Patient verbalizes understanding of instruction.
--- NOTE | 2021-10-13 00:39 | NUR ---
pt left on gurney with 2 emt at bedside. pt is in stable condition for transport
== END 2021-10-12 23:11 | disposition home or self-care (01) ==
LOC: ER 21:33
DX: S82.192A Other fracture of upper end of left tibia, initial encounter for closed fracture (principal); S82.492A Other fracture of shaft of left fibula, initial encounter for closed fracture; I10 Essential (primary) hypertension; E78.5 Hyperlipidemia, unspecified; E11.9 Type 2 diabetes mellitus without complications; Z87.440 Personal history of urinary (tract) infections; Z87.448 Personal history of other diseases of urinary system; Z88.8 Allergy status to other drugs, medicaments and biological substances; Z79.899 Other long term (current) drug therapy; W18.30XA Fall on same level, unspecified, initial encounter; Y93.89 Activity, other specified; Y92.89 Other specified places as the place of occurrence of the external cause; Y99.8 Other external cause status
CPT/HCPCS: 73564-TC

== ENCOUNTER 2022-11-02 11:23 | Emergency (ER) | payer OTHER ==
[~2022-11-02] VITALS: Ht 160 cm; Wt 59.0 kg
--- NOTE | 2022-11-02 11:40 | NUR ---
BIB CAREGIVER C/O BUTTOCK PAIN R/T LLE S/P GLF LAST NIGHT AT 1800 10/10 PAIN, HYPERTENSIVE BOTANY TECHNICIAN.
--- NOTE | 2022-11-02 11:45 | NUR ---
AT BEDSIDE FOR EVAL
[2022-11-02] MEDS ORDERED: KETOROLAC TROMETHAMINE INJ 30 MG/ML VIAL ONE ×2 (11:56→17:03)
[2022-11-02] MEDS ORDERED: KETOROLAC TROMETHAMINE INJ 30 MG/ML VIAL IM ONE ×2 (12:00→17:00)
--- NOTE | 2022-11-02 12:00 | NUR ---
TAKEN TO CT
[2022-11-02] MEDS ORDERED: LOSARTAN POTASSIUM 50 MG TABLET ONE (16:08)
[2022-11-02] MEDS ORDERED: LOSARTAN POTASSIUM 25 MG TABLET PO ONE (16:30)
[2022-11-02] MEDS ORDERED: LIDO30AD10 TP (16:34)
[2022-11-02] MEDS ORDERED: IBUP-1955 PO (16:34)
[2022-11-02 17:14] VITALS: BP 127/81
--- NOTE | 2022-11-02 17:26 | NUR ---
Patient discharged to home in stable condition. Written and verbal after care instructions given. Patient verbalizes understanding of instruction.
== END 2022-11-02 17:15 | disposition home or self-care (01) ==
LOC: ER 11:38
DX: M25.562 Pain in left knee (principal); M53.3 Sacrococcygeal disorders, not elsewhere classified; I10 Essential (primary) hypertension; E78.5 Hyperlipidemia, unspecified; E11.9 Type 2 diabetes mellitus without complications; Z87.440 Personal history of urinary (tract) infections; Z88.8 Allergy status to other drugs, medicaments and biological substances; Z79.899 Other long term (current) drug therapy
CPT/HCPCS: 99285; 73700; 96372 ×2; 72170; 72220; 73564; 72192; J1885 ×2